=== PATIENT | female | born 1970 | race Caucasian/White ===

== ENCOUNTER 2018-05-11 16:21 | Outpatient (REF) | payer BC, SELFPAY ==
--- NOTE | 2018-05-11 16:00 | PAPFT_PTH ---
PATIENT: Tammy Ruth LOC: [facility] U#:[id number] AGE/SX: 47/F ROOM: RE05/11/[address]: Es West MD : 1970 BED: DIS: 05/11/2018 SPEC #: [id number] RECD: 05/11/18 18:04 STATUS: MATT LOCKWOOD #: [id number] AMI: 05/11/18 16:[address]: Es West DEPT: [facility] Cytology RECD BY: Anna Calderon ENTERED: 05/11/18 18:04 SP TYPE: PAPFT OTHR DR: Rocio Lange Tissues: 1 - CX/ENDOCX FOR PAP SMEARS Procedures: PAP THIN PREP/UVM Screening HPV DNA PROBE Comments: [id number]
== END 2018-05-11 16:41 ==
LOC: LBN 16:21
PROVIDERS: PCP Family Medicine; Visit Provider Obstetrics & Gynecology
DX: Z12.4 Encounter for screening for malignant neoplasm of cervix (principal); Z11.51 Encounter for screening for human papillomavirus (HPV)
CPT/HCPCS: 88142; 87624

== ENCOUNTER 2018-09-12 01:45 | Outpatient (CLI) | payer BC, SELFPAY ==
[2018-09-12 08:44] LABS: Anion Gap 9.7 mmol/L (3-11); BUN 22 mg/dL (7-18); CO2 27.3 mmol/L (21.0-32.0); CREATININE 0.91 mg/dL (0.55-1.02); Calcium 9.5 mg/dL (8.5-10.1); Chloride 104 mmol/L (98-107); Cholesterol 205 mg/dL (50-200); Glucose 102 mg/dL (70-100); HDL Cholesterol 75 mg/dL (40-60); LDL CHOLESTEROL 118 mg/dL (<100); Sodium 141 mmol/L (136-145); Triglyceride 90 mg/dL (30-150)
== END 2018-09-12 02:05 ==
PROVIDERS: PCP Family Medicine; Visit Provider Family Medicine
DX: Z00.00 Encounter for general adult medical examination without abnormal findings (principal); Z13.228 Encounter for screening for other metabolic disorders; Z13.220 Encounter for screening for lipoid disorders; Z79.1 Long term (current) use of non-steroidal anti-inflammatories (NSAID)
CPT/HCPCS: 36415; 80048; 80061; 83721

== ENCOUNTER 2018-11-15 00:27 | Outpatient (CLI) | payer BC, SELFPAY ==
--- NOTE | 2018-11-15 08:29 | DI.MAMMO_ITS ---
SYMPTOM/DIAGNOSIS: SCREENING, Z12.39 MAMMOGRAMS: Mammograms were interpreted according to the usual protocol including computer analysis with CAD system, tomosynthesis and C view imaging. The breast tissue is of moderate radiodensity. There is no evidence of a mass. There are no suspicious calcifications. There has been no significant interval change when compared with the prior images. SUMMARY: No evidence of malignancy, Category I. Breast density Category B. SA ASSESSMENT OF FINDINGS: Negative. Category 1. Patient will receive a letter notifying them of these results. BI-RADS category B. There are scattered areas of fibroglandular density.
== END 2018-11-15 00:47 ==
PROVIDERS: PCP Family Medicine; Visit Provider Family Medicine
DX: Z12.31 Encounter for screening mammogram for malignant neoplasm of breast (principal)
CPT/HCPCS: 77063; 77067

== ENCOUNTER 2018-11-20 01:11 | Outpatient (CLI) | payer BC, SELFPAY ==
--- NOTE | 2018-11-20 14:11 | DI.US_ITS ---
SYMPTOMS/DIAGNOSIS: ABNORMAL UTERINE BLEEDING AND LEFT-SIDED PAIN, N93.9 PELVIC ULTRASOUND: Pelvic ultrasound was performed transabdominally and transvaginally. Please see the accompanying data sheet for measurements of the pelvic structures. The uterus is normal in appearance. Endometrial stripe measures about 15 mm in thickness and appears fairly homogeneous. The patient is reportedly premenstrual. There is a right ovarian cyst measuring 25 mm in diameter, which appears to be a simple cyst. Otherwise, the ovaries are normal in appearance. No free fluid identified in the cul-de-sac. Limited scanning of the kidneys is unremarkable. CONCLUSION: A 25 mm presumably functional simple right ovarian cyst.
== END 2018-11-20 01:31 ==
PROVIDERS: PCP Family Medicine; Visit Provider Obstetrics & Gynecology
DX: N93.9 Abnormal uterine and vaginal bleeding, unspecified (principal); R10.32 Left lower quadrant pain; N83.291 Other ovarian cyst, right side
CPT/HCPCS: 76830; 76856

== ENCOUNTER 2018-11-22 11:17 | Outpatient (REF) | payer BC, SELFPAY ==
--- NOTE | 2018-11-22 10:30 | PAPFT_PTH ---
PATIENT: Tammy Ruth LOC: [facility] U#:[id number] AGE/SX: 48/F ROOM: RE11/22/[address]: Ethan Sebastian : 1970 BED: DIS: 11/22/2018 SPEC #: [id number] RECD: 11/22/18 13:06 STATUS: MATT RERomi #: [id number] AMI: 11/22/18 10:[address]: Ethan Sebastian DEPT: [facility] Cytology RECD BY: Anna Calderon ENTERED: 11/22/18 13:06 SP TYPE: PAPFT OTHR DR: Rocio Lange Tissues: 1 - CX/ENDOCX FOR PAP SMEARS Procedures: PAP THIN PREP/UVM Screening Comments: [id number] (UNSATISFACTORY FOR EVALUATION)
--- NOTE | 2018-11-22 10:30 | ENDOMET_PTH ---
PATIENT: Tammy Ruth LOC: [facility] U#:[id number] AGE/SX: 48/F ROOM: RE11/22/[address]: Ethan Sebastian : 1970 BED: DIS: 11/22/2018 SPEC #: [id number] RECD: 11/22/18 12:51 STATUS: MATT REQ #: [id number] AMI: 11/22/18 10:[address]: Ethan Sebastian DEPT: Surgical Specimen RECD BY: Anna Calderon ENTERED: 11/22/18 12:51 SP TYPE: Endomet OTHR DR: Rocio Lange Tissues: 1 - ENDOMETRIUM BX/SAMY Procedures: GROSS AND MICRO LEVEL 4 Comments: [id number]
== END 2018-11-22 11:37 ==
LOC: LBN 11:17
PROVIDERS: PCP Family Medicine; Visit Provider Internal Medicine Gastroenterology
DX: N85.8 Other specified noninflammatory disorders of uterus (principal); N93.8 Other specified abnormal uterine and vaginal bleeding; Z12.4 Encounter for screening for malignant neoplasm of cervix; Z11.51 Encounter for screening for human papillomavirus (HPV)
CPT/HCPCS: 88142; 88305; 87624

== ENCOUNTER 2019-01-15 12:37 | Outpatient (CLI) | payer BC, SELFPAY ==
[2019-01-15 13:47] LABS: HCT 33.1 % (36.0-46.0); HGB 10.4 g/dL (12.0-15.5); Mean Corp. HGB Concentration 31.4 g/dL (32.0-36.0); Mean Corpuscular Hemoglobin 27.3 pg (27.0-33.0); Mean Corpuscular Volume 86.9 fL (80-95); Mean Platelet Volume 9.4 fL (8.0-11.0); Platelet Count 533 x1000/uL (130-400); RBC 3.81 m/cumm (4.00-5.20); RBC Distribution Width 14.8 % (11.7-14.6); White Blood Cell Count 5.29 k/cumm (4.4-10.8)
== END 2019-01-15 12:57 ==
PROVIDERS: PCP Family Medicine; Visit Provider Obstetrics & Gynecology
DX: N92.0 Excessive and frequent menstruation with regular cycle (principal); N93.9 Abnormal uterine and vaginal bleeding, unspecified
CPT/HCPCS: 36415; 85027; 86900; 86901

== ENCOUNTER 2019-01-16 06:20 | Day surgery (SDC) | payer BC, SELFPAY ==
--- NOTE | 2019-01-15 10:14 | W.PM.HP.N ---
Date of service: 01/15/19 Time of Service: 10:14 Assessment and Plan (1) Perimenopausal menorrhagia: Current visit: No Status: Acute menorraghia unresponsive to medical therapy with symptomatic anemia plan Novasure endometrial ablation R/B/A reviewed all questions asked and answered consents signed History of Present Illness Chief Complaint: menorraghia unresponsive to medical therapy Narrative: 48 yo female with continued menorraghia heavy passing clots despite multiple attempts at medical therapy she present to office 01/14/19 with decreasing Hg, pale signs anemia Plan Novasure endometrial ablation Review of Systems Review of Systems All systems reviewed & are unremarkable except as noted in HPI and below PFSH Medical History Abnormal uterine bleeding (AUB) (Chronic) Hx of osteoarthritis (Acute) Surgical History section Biopsy of breast Hx of arthroscopy of left knee (Acute) Social History Smoking/Tobacco Use Status: Never Alcohol Intake: current Alcohol Intake frequency: holidays/special occasions only Drug use: Never Substance use type: does not use Household members: spouse, children and other Details: H - Adnan. 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 Do you feel safe at home: Yes Do you feel safe in your relationship?: Yes Female Reproductive History Menstrual control method: condoms History History 2 Para Hx # Term Pregnancies 2 Multiple births Hx # Pregnancies Ectopic pregnancies AB induced Hx Number of Living Children AB spontaneous Meds Home Medications Medication Instructions Recorded Confirmed Type acetaminophen 325 mg PO PRN #2 07/25/16 01/15/19 History ascorbic acid (vitamin C) [Vitamin 500 mg PO DAILY 07/25/16 01/15/19 History C] cholecalciferol (vitamin D3) 2,000 unit PO DAILY 07/25/16 01/15/19 History [Vitamin D3] ferrous gluconate 240 mg PO 07/25/16 01/14/19 History lorazepam 0.5 mg PO DAILY 07/25/16 01/15/19 History montelukast [Singulair] 10 mg PO DAILY tab-cap 07/25/16 01/15/19 History vitamin O18-jpikg acid 1 ea PO 07/25/16 01/14/19 History vitamin E mixed 400 unit PO DAILY 07/25/16 01/15/19 History meloxicam 7.5 mg PO DAILY tab-cap 03/27/18 01/15/19 History ropinirole 1 mg PO HS 03/27/18 01/15/19 History dextroamphetamine-amphetamine ER 10 mg PO QAM 11/13/18 01/14/19 History 10 mg 24hr capsule,extend release venlafaxine ER 150 mg 150 mg PO QHS 11/13/18 01/15/19 History capsule,extended release 24 hr norgestrel-ethinyl estradiol 0.3 1 tab PO DAILY #56 tab 01/08/19 01/15/19 Rx mg-30 mcg tablet Allergies Allergy/AdvReac Type Severity Reaction Status Date / Time trazodone AdvReac Mild very dry Verified 01/15/19 09:15 mouth Exam Const General: cooperative Other: pale and fatigued appearing Resp Effort & Inspection: normal respiratory effort Auscultation: clear to auscultation bilaterally Cardio Palpation: normal PMI Rate: regular rate Rhythm: regular rhythm Heart Sounds: S1 normal and S2 normal GI Inspection: normal to inspection Palpation: soft and no hepatosplenomegaly External Female Exam: external appearance normal Speculum Exam - Vagina: vaginal bleeding Bimanual Exam- Vagina & Uterus: normal bimanual exam OB/External & Speculum: vaginal bleeding
[2019-01-16 06:22] VITALS: BP 136/84; PULSE 93; RESP 17; TEMP 36.9; O2SAT 99
[2019-01-16] MEDS: Lactated Ringers 1,000 ML 125 ML IV (06:54)
[2019-01-16] MEDS: Bupivacaine 0.5% Pres-Free 30 ML VIAL (07:55)
[2019-01-16] MEDS: Silver Nitrate Stick 1 EACH (08:05)
[2019-01-16] MEDS: oxyCODONE 5 mg/Acetaminophen 325 mg TAB PO (08:51)
[2019-01-16 08:58] VITALS: BP 146/82; PULSE 69; RESP 18; TEMP 36.5; O2SAT 100
--- NOTE | 2019-01-17 07:21 | ROE_ITS ---
DATE OF SURGERY January 16, 2019 PREOPERATIVE DIAGNOSES Menorrhagia unresponsive to medical therapy. POSTOPERATIVE DIAGNOSES Menorrhagia unresponsive to medical therapy. PROCEDURE NovaSure ablation. SURGEON Es West M.D. ANESTHESIA General. COMPLICATIONS None. ESTIMATED BLOOD LOSS 25 cc FLUID Per Anesthesia records. FINDINGS Sounding length of uterus 10 centimeters. Cervical length 4.5 centimeters. Cavity length 5.5 centimet ers. Cavity width 4.4 centimeters. POWER Power 133. TIME OF ABLATION 109 Seconds. PROCEDURE DESCRIPTION The patient was taken to the Operating Room, where she was properly identified. She was then placed on the operating table in the dorsal supine position. General Anesthesia was induced without difficul ty. She was then placed in the dorsal lithotomy position, prepped and draped in a normal sterile fas hion. A formal time-out procedure was then performed, confirming the patient and procedure. A bivalved speculum was placed. The cervix was visualized and grasped on the anterior lip with a sin gle-tooth tenaculum. The uterus total cavity length was sounded using the uterine sound and measurem ent was 10 centimeters. Cervical length was 4.5, thus giving a cavity length of 5.5 centimeters. The cervix was dilated with the Levy dilators without difficulty. The NovaSure endometrial ablation appa ratus was advanced into the uterine cavity without difficulty and deployed. The uterine cavity width was measured at 4.4 centimeters. A cavity assessment was performed and it was adequate, then [address] endometrial ablation was performed without difficulty or complication. Once the procedure was ende d, all the equipment was removed from the uterus and cervix. There was a small amount of bleeding fro m the Single-tooth tenaculum site, which was made hemostatic with silver nitrate. The patient was awakened and taken to the Recovery Room in stable condition. Sponge, lap, needle and instrument counts were correct x2. CC: [facility]
== END 2019-01-16 09:37 | disposition home or self-care (01) ==
LOC: SUR 09:44
PROVIDERS: PCP Family Medicine; Visit Provider Obstetrics & Gynecology
PROC: (CPT 58353; principal; 2019-01-16 07:30)
DX: N92.4 Excessive bleeding in the premenopausal period (principal)
CPT/HCPCS: 58353; 81025; NC

== ENCOUNTER 2019-10-02 11:58 | Outpatient (REF) | payer BC, SELFPAY ==
[2019-10-02 19:29] LABS: Bilirubin Negative (Negative); Blood Small (Negative); Clarity Clear (Clear); Glucose Negative (Negative); Ketones Negative (Negative); Leukocyte Esterase Negative (Negative); Nitrite Negative (Negative); Urobilinogen 0.2 EU/dL (Up TO 0.2)
[2019-10-02 19:40] LABS: Bacteria Negative HPF (Negative); C & S Indicated? No; Crystals Negative HPF (Negative); Epithelial Cells Moderate HPF (Negative); Mucus Negative (Negative); WBC 0-2 HPF (0-5)
== END 2019-10-02 12:18 ==
LOC: NCHCN 11:58
PROVIDERS: PCP Family Medicine; Visit Provider Family Medicine
DX: R50.9 Fever, unspecified (principal); R10.32 Left lower quadrant pain
CPT/HCPCS: 81003; 81015

== ENCOUNTER 2019-10-02 12:05 | Outpatient (CLI) | payer BC, SELFPAY ==
[2019-10-02 12:34] LABS: Abs Immature Grans 0.03 k/cumm (0.0-0.09); Absolute Basophil Count 0.01 k/cumm (0.0-0.2); Absolute Eosinophil Count 0.05 k/cumm (0.0-0.7); Absolute Lymphocyte Count 1.14 k/cumm (1.2-3.4); Absolute Monocyte Count 0.52 k/cumm (0.11-0.7); Absolute Neutrophil Count 9.61 k/cumm (1.2-6.7); Basophils % 0.1; Eosinophils % 0.4; HGB 12.8 g/dL (12.0-15.5); Immature Grans % 0.3 %; Mean Corp. HGB Concentration 33.7 g/dL (32.0-36.0); Mean Corpuscular Hemoglobin 30.1 pg (27.0-33.0); Mean Corpuscular Volume 89.4 fL (80-95); Mean Platelet Volume 9.3 fL (8.0-11.0); Monocytes % 4.6; Neutrophils % 84.6; Platelet Count 455 x1000/uL (130-400); RBC 4.25 m/cumm (4.00-5.20); RBC Distribution Width 14.8 % (11.7-14.6); White Blood Cell Count 11.36 k/cumm (4.4-10.8)
[2019-10-02 13:30] LABS: ALT 15 U/L (14-59); AST 15 U/L (15-37); Albumin 3.8 g/dL (3.4-5.0); Alkaline Phosphatase 68 U/L (46-116); Anion Gap 9.7 mmol/L (3-11); BUN 16 mg/dL (7-18); Bilirubin, Total 0.7 mg/dL (0.2-1.0); C-Reactive Protein 3.67 mg/dL (0.0-0.3); CO2 24.3 mmol/L (21.0-32.0); CREATININE 0.83 mg/dL (0.55-1.02); Calcium 8.6 mg/dL (8.5-10.1); Chloride 104 mmol/L (98-107); Glucose 94 mg/dL (74-106); Sodium 138 mmol/L (136-145); Total Protein 7.3 g/dL (6.4-8.2)
[2019-10-02 13:42] LABS: HCG Qual (Serum) Negative
[2019-10-02] MEDS: Omnipaque 350 MG/ML 100 ML BTL IJ (14:48)
--- NOTE | 2019-10-02 14:48 | DI.CT_ITS ---
EXAM: CT ABDOMEN AND PELVIS W CLINICAL HISTORY: LLQ, PAIN, R10.32, FEVER, R50.9, ? DIVERTICULITIS TECHNIQUE: Imaging Protocol: Axial computed tomography images with coronal and sagittal reformatted images were created and reviewed CONTRAST MATERIAL: Intravenous: Omnipaque 350 Contrast volume:100 mL Oral: Yes COMPARISON: No exams were available for comparison FINDINGS: ABDOMEN: Lung Bases: Normal where visualized. Liver: Normal density. No measurable mass. Portal, Superior Mesenteric, and Splenic Veins: Unremarkable. Gallbladder and Biliary Tract: No radiodense calculus or dilation. Pancreas: Normal density, no abnormal calcifications or inflammatory process. Spleen: Normal. Adrenals: No masses seen. Kidneys: Normal size, contour and axis. No radiodense stones or obstructive uropathy. No masses seen. Abdominal Aorta: Abdominal portion non-dilated. Bowel: There is mild bowel wall thickening seen in the proximal sigmoid colon. This lies adjacent to an enlarged and heterogeneous left ovary. There is no evidence of obstruction. Appendix is unremar kable. Peritoneal Cavity: No ascites, collection or mesenteric inflammatory response. Lymph Nodes: Within normal limits. Bones: Unremarkable. Soft Tissues: Unremarkable. PELVIS: Bladder: Symmetric distention, no gross wall thickening. Reproductive Organs: There is fluid seen within the endometrial canal. There is heterogeneity of the cervix. An obstructing mass cannot be excluded. The left ovary appears mildly enlarged and heterog eneous. Inflammatory stranding is seen around the ovary. Lymph Nodes: Within normal limits. Bones: Mild degenerative changes. IMPRESSION: 1. Fluid seen within the endometrial canal. Heterogeneity of the region of the cervix. An obstructi ng mass should be considered. Pelvic ultrasound is recommended for further evaluation. MRI may be c onsidered. 2. Mildly enlarged and heterogeneous left ovary. Pelvic ultrasound should be obtained to assess for ovarian mass or torsion. 3. Mild thickening of the wall of the adjacent sigmoid colon. Inflammatory or infectious colitis can not be excluded. 4. Findings were discussed with the patient's primary care physician on the date of the examination. DATA REPOSITORY: All CT scans at this facility are submitted to the National Radiology Data Registry (NRDR) Dose Index Registry (DIR) with the [employer] (ACR). RADIATION OPTIMIZATION: All CT scans at this facility use at least one of these dose optimization te chniques: automated exposure control; mA and/or kV adjustment per patient size (includes targeted exa ms where dose is matched to clinical indication); or iterative reconstruction.
[2019-10-02] MEDS: Normal Saline - Diluent 50 ML VIAL IV (14:49)
== END 2019-10-02 12:25 ==
PROVIDERS: PCP Family Medicine; Visit Provider Family Medicine
DX: R10.32 Left lower quadrant pain (principal); R50.9 Fever, unspecified; N83.8 Other noninflammatory disorders of ovary, fallopian tube and broad ligament; K63.89 Other specified diseases of intestine; R93.89 Abnormal findings on diagnostic imaging of other specified body structures
CPT/HCPCS: 36415; 80053; 74177; 84703; 85025; 86140; J3490

== ENCOUNTER 2019-10-02 15:04 | Observation (INO) | payer BC, SELFPAY ==
[2019-10-02] VITALS (28 sets, daily range): BP systolic 100–130; BP diastolic 63–82; PULSE 86–112; RESP 13–26; TEMP 36.2–37; O2SAT 90–100
[2019-10-02] MEDS: EPINEPHrine 0.3 MG KIT 0.5 MG IM (15:11)
[2019-10-02] MEDS: methylPREDNISolone SUCC 125 MG VIAL IVP (15:21)
[2019-10-02] MEDS: diphenhydrAMINE 50 MG/ML VIAL IVP (15:21)
[2019-10-02] MEDS: Normal Saline 1,000 ML 1000 ML IV (15:23)
--- NOTE | 2019-10-02 16:03 | DI.US_ITS ---
EXAM: US PELVIS TRANSVAGINAL CLINICAL HISTORY: eval for torsion and uterine abnormality TECHNIQUE: Ultrasound performed using standard protocol. COMPARISON: US PELVIS TRANSVAGINAL from 11/20/2018 FINDINGS: Pelvic ultrasound was performed transabdominally and transvaginally. Patient reportedly has a histor y of prior endometrial ablation. On today's examination, uterus appears mildly enlarged with somewhat heterogeneous myometrium. Endom etrium is thickened and slightly heterogeneous, measuring 18 millimeters in thickness. Right ovary p oorly visualized, only seen transabdominally, but grossly unremarkable. Left ovary unremarkable in a ppearance. Small quantity of free pelvic fluid noted. IMPRESSION: Abnormally thickened endometrial stripe in reportedly postmenopausal patient. Endometrial biopsy vikash uld be considered to rule out neoplasm.
--- NOTE | 2019-10-02 16:44 | DI.VRAD_ITS ---
PROCEDURE INFORMATION: Preliminary report Exam: US Pelvis Complete, Transabdominal and US Pelvis, Transvaginal Exam date and time: 10/02/2019 3:22 PM Age: 49 years old Clinical indication: Pelvic pain; Prior surgery; Surgery date: 6+ months; Surgery type: Endometrial ablation 12/2018 TECHNIQUE: Imaging protocol: Real-time transabdominal and transvaginal pelvic ultrasound (complete) with image documentation. Transvaginal imaging was used for better evaluation of the endometrium and adnexa. COMPARISON: US PELVIS TRANSVAGINAL 11/20/2018 5:21 PM FINDINGS: Uterus/cervix: Uterus measures 9.4 x 4.6 x 6.0 cm. Thickened endometrium currently measuring 1.8 cm in diameter and previously measuring 1.5 cm. Right adnexa: Right ovary measures 3.1 x 0.9 x 1.4 cm. Left adnexa: Left ovary measures 2.2 x 1.7 x 1.6 cm. Free fluid: Trace free fluid. Bladder: Normal bladder morphology. IMPRESSION: Thickened endometrium currently measuring 1.8 cm in diameter and previously measuring 1.5 cm. Dictated and Authenticated by: Christo Cox MD. Ordering:NOE Fields MD
[2019-10-02 17:10] LABS: Abs Immature Grans 0.03 k/cumm (0.0-0.09); Absolute Basophil Count 0.01 k/cumm (0.0-0.2); Basophils % 0.1; HCT 36.2 % (36.0-46.0); HGB 12.3 g/dL (12.0-15.5); Immature Grans % 0.2 %; Lymphocytes % 8.5; Mean Corpuscular Hemoglobin 30.4 pg (27.0-33.0); Mean Corpuscular Volume 89.6 fL (80-95); Mean Platelet Volume 9.3 fL (8.0-11.0); Monocytes % 2.3; Neutrophils % 88.9; Platelet Count 453 x1000/uL (130-400); RBC 4.04 m/cumm (4.00-5.20); RBC Distribution Width 14.6 % (11.7-14.6); White Blood Cell Count 14.15 k/cumm (4.4-10.8)
[2019-10-02 17:12] LABS: Absolute Monocyte Count 0.33 k/cumm (0.11-0.7); Absolute Neutrophil Count 12.58 k/cumm (1.2-6.7)
--- NOTE | 2019-10-02 17:15 | HPE_ITS ---
Date of service: 10/02/19 Time of Service: 17:15 Assessment and Plan Assessment and plan (1) Acute abdominal pain in left lower quadrant: Status: Acute Assessment and plan: It is likely that there are 2 processes at play here. From her imaging studies does appear that she has a developing tubo-ovarian abscess and we will treat her with Mefoxin and doxycycline overnight and perform pain management. The imaging of her uterus is suggestive of a hematometra and this could be the result of obstruction related to her NovaSure endometrial ablation. For now we will simply manage pain and symptoms and decide further plan of management tomorrow and determine if surgical intervention is required. (2) Tubo-ovarian abscess: Status: Acute (3) Hematometra: Status: Acute (4) Anaphylactic reaction to contrast media: Status: Acute History of Present Illness History of Present Illness Chief Complaint: Acute abdominal pain possible tubo- ovarian abscess and hematometra Narrative: Is a 49-year-old who presents emergency department with acute onset of severe abdominal pain that began last night. She reports the constant onset of fevers and chills as well. She did not actually take her temperature. The patient reports her pain is localized in the left lower quadrant and is nonradiating. She describes her pain as severe. Last normal bowel movement was last night. She is status post NovaSure endometrial ablation last year and has not had a menses since that procedure last December. She denies any abnormal vaginal discharge. No urinary symptoms. She did have a CT of the abdomen and pelvis and a pelvic ultrasound. Unfortunately she did have an anaphylactic reaction due to IV contrast while on CT and was treated in the emergency department. Findings on CT demonstrate inflammatory changes in left adnexa. On both studies the endometrium was noted to be markedly thickened and did appear to be fluid-filled on CT resembling a possible hematometra. Review of Systems All systems reviewed & are unremarkable except as noted in HPI and below PFSH Social History Smoking/Tobacco Use Status: Never Alcohol Intake: current Alcohol Intake frequency: holidays/special occasions only Drug use: Never Substance use type: does not use Household members: spouse, children and other Details: H - Adnan. 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 Do you feel safe at home: Yes Do you feel safe in your relationship?: Yes Female Reproductive History Menstrual control method: condoms History History 2 Para Hx # Term Pregnancies 2 Multiple births Hx # Pregnancies Ectopic pregnancies AB induced Hx Number of Living Children AB spontaneous Meds Home Medications and Allergies Home Medications Medication Instructions Recorded Confirmed Type ascorbic acid (vitamin C) [Vitamin 500 mg PO DAILY 07/25/16 10/02/19 History C] cholecalciferol (vitamin D3) 2,000 unit PO DAILY 07/25/16 10/02/19 History [Vitamin D3] ferrous gluconate 240 mg PO BID 07/25/16 10/02/19 History lorazepam 0.5 mg PO HS 07/25/16 10/02/19 History montelukast [Singulair] 10 mg PO DAILY tab-cap 07/25/16 10/02/19 History vitamin E mixed 400 unit PO BID 07/25/16 10/02/19 History meloxicam 15 mg PO DAILY tab-cap 03/27/18 10/02/19 History ropinirole 1 mg PO HS 03/27/18 10/02/19 History dextroamphetamine-amphetamine ER 15 mg PO QAM 11/13/18 01/29/19 History 10 mg 24hr capsule,extend release venlafaxine 150 mg 150 mg PO QHS 11/13/18 10/02/19 History capsule,extended release 24 hr albuterol sulfate [ProAir HFA] 2 puff INHALATION QID PRN 10/02/19 10/02/19 History budesonide-formoterol [Symbicort] 2 puff INHALATION BID 10/02/19 10/02/19 History mirtazapine 15 mg PO QHS 10/02/19 10/02/19 History venlafaxine [Effexor XR] 75 mg PO DAILY 10/02/19 10/02/19 History Allergies Allergy/AdvReac Type Severity Reaction Status Date / Time iohexol [From Omnipaque] Allergy Severe Anaphylaxsi Verified 10/02/19 15:17 s trazodone AdvReac Mild very dry Verified 01/29/19 15:50 mouth Exam GI Other: Tenderness to palpation in the left lower quadrant. No rebound, guarding or rigidity. No palpable masses. Results Labs Result diagrams: 10/02/19 17:04 10/02/19 17:04 Labs: Laboratory Results - last 24 hr 10/02/19 17:04 WBC 14.15 H RBC 4.04 Hgb 12.3 Hct 36.2 MCV 89.6 MCH 30.4 MCHC 34.0 RDW 14.6 Plt Count 453 H MPV 9.3 Immature Gran % 0.2 Neutrophils % 88.9 Lymphocytes % 8.5 Monocytes % 2.3 Eosinophils % 0.0 Basophils % 0.1 Absolute Neutrophils 12.58 H Absolute Lymphocytes 1.20 Absolute Monocytes 0.33 Absolute Eosinophils 0.00 Absolute Basophils 0.01 Last Vital Signs Temp 98.2 F 10/02/19 15:12 Pulse 99 H 10/02/19 16:45 Resp 15 10/02/19 16:50 BP 127/70 10/02/19 16:45 Pulse Ox 100 10/02/19 15:31
[2019-10-02 17:25] LABS: ALT 16 U/L (14-59); AST 12 U/L (15-37); Albumin 3.5 g/dL (3.4-5.0); Alkaline Phosphatase 65 U/L (46-116); Anion Gap 12.6 mmol/L (3-11); BUN 11 mg/dL (7-18); Bilirubin, Total 0.8 mg/dL (0.2-1.0); CO2 22.4 mmol/L (21.0-32.0); CREATININE 0.75 mg/dL (0.55-1.02); Calcium 7.9 mg/dL (8.5-10.1); Chloride 105 mmol/L (98-107); Glucose 155 mg/dL (74-106); Potassium 3.1 mmol/L (3.5-5.1); Sodium 140 mmol/L (136-145); Total Protein 7.3 g/dL (6.4-8.2)
--- NOTE | 2019-10-02 17:39 | NUR.NOTE ---
patient medicated per MD order Nursing Note:
[2019-10-02] MEDS: Ketorolac 30 MG/ML VIAL IVP ×2 (18:45→22:17)
[2019-10-02] MEDS: Normal Saline Flush 10 ML SYR IVP (18:45)
[2019-10-02] MEDS: DOXYCYCLINE 100 MG in Normal Saline 100 ML IVPB (18:46)
[2019-10-02] MEDS: Lactated Ringers 1,000 ML 75 ML IV (18:46)
--- NOTE | 2019-10-02 22:47 | ED.GENADUL_ITS ---
Discharge Plan Disposition [facility] Condition: Stable Discharge Details Chief Complaint: Allergic Clinical Impression: Acute abdominal pain in left lower quadrant, Acute anaphylaxis Admit Date/Time: 10/02/19 17:11 Admit Provider: Salvador Sebastian Attending Provider: Salvador Sebastian Primary Care Provider: Rocio Lange ED Provider: Donnie Irizarry Discharge Data Discharge Date/Time-TO BE ENTERED AT DEPARTURE: 10/02/19 18:12 Medical Decision Making This is a 49-year-old female who was brought emergently from diagnostic imaging for evaluation of anaphylactic reaction. Patient was receiving an IV contrast CT scan for evaluation of potential diverticulitis. While receiving the contrast the patient began having difficulty breathing, became short of breath, and a notable rash developed. He was brought to the ER immediately. Exam demonstrated mild tachycardia, no hypoxia. Subjective difficulty breathing with mild increase in secretions in conjunction with rash. With the 3 system involvement present, patient was demonstrating mild to moderate anaphylaxis. 0.5 mg of epinephrine were given IM, 50 mg of Benadryl and 125 mg of Solu-Medrol. Patient tolerated all this well and her symptoms gradually improved. However exam did demonstrate left lower quadrant pain. CT scan results demonstrate notable atypical finding in the uterus and left ovary concerning for cyst or mass in conjunction with fluid in the uterus. She did have a recent hysterectomy so this is of concern. Ultrasound was subsequently ordered, which showed small amount of fluid in the uterus however more concerning like there is an atypical flow/met anatomy of the left ovary. Radiology/ultrasonography was concerned for potential torsion versus developing tubo-ovarian abscess. I did contact the obstetrics organ pipe maker metal Dr. Sebastian vehicle controls engineer, he was both extremely accommodating and helpful and admitted the patient to his service for antibiotics, and continued close monitoring for potential surgical intervention. I have extensively reviewed the treatment plan with the patient. I have addressed all patient concerns at this time. I have also discussed the plan with the admitting physician and they agree with the current assessment and plan and have agreed to assume responsibility for the patient. All parties demonstrate verbal understanding and agreement with our assessment and plan at this time. FINDINGS: ABDOMEN: Lung Bases: Normal where visualized. Liver: Normal density. No measurable mass. Portal, Superior Mesenteric, and Splenic Veins: Unremarkable. Gallbladder and Biliary Tract: No radiodense calculus or dilation. Pancreas: Normal density, no abnormal calcifications or inflammatory process. Spleen: Normal. Adrenals: No masses seen. Kidneys: Normal size, contour and axis. No radiodense stones or obstructive uropathy. No masses seen. Abdominal Aorta: Abdominal portion non-dilated. Bowel: There is mild bowel wall thickening seen in the proximal sigmoid colon. This lies adjacent to an enlarged and heterogeneous left ovary. There is no evidence of obstruction. Appendix is unremarkable. Peritoneal Cavity: No ascites, collection or mesenteric inflammatory response. Lymph Nodes: Within normal limits. Bones: Unremarkable. Soft Tissues: Unremarkable. PELVIS: Bladder: Symmetric distention, no gross wall thickening. Reproductive Organs: There is fluid seen within the endometrial canal. There is heterogeneity of the cervix. An obstructing mass cannot be excluded. The left ovary appears mildly enlarged and heterogeneous. Inflammatory stranding is seen around the ovary. Lymph Nodes: Within normal limits. Bones: Mild degenerative changes. IMPRESSION: 1. Fluid seen within the endometrial canal. Heterogeneity of the region of the cervix. An obstructing mass should be considered. Pelvic ultrasound is recommended for further evaluation. MRI may be considered. 2. Mildly enlarged and heterogeneous left ovary. Pelvic ultrasound should be obtained to assess for ovarian mass or torsion. 3. Mild thickening of the wall of the adjacent sigmoid colon. Inflammatory or infectious colitis cannot be excluded. 4. Findings were discussed with the patient's primary care physician on the date of the examination. FINDINGS: Uterus/cervix: Uterus measures 9.4 x 4.6 x 6.0 cm. Thickened endometrium currently measuring 1.8 cm in diameter and previously measuring 1.5 cm. Right adnexa: Right ovary measures 3.1 x 0.9 x 1.4 cm. Left adnexa: Left ovary measures 2.2 x 1.7 x 1.6 cm. Free fluid: Trace free fluid. Bladder: Normal bladder morphology. IMPRESSION: Thickened endometrium currently measuring 1.8 cm in diameter and previously measuring 1.5 cm. Dictated and Authenticated by: Christo Cox MD. HPI General Date/Time Provider Initiated Documentation: 10/02/19 15:20 . HPI Narrative: This is a 49-year-old female who was brought to the emergency depar tment emergently for an anaphylactic reaction from IV contrast. Patient was receiving an outpatient CT scan for evaluation of diverticulitis, however while receiving the contrast media she began to develop significant shortness of breath, difficulty breathing, rash, and increase in secretions. She was immediately brought over to the emergency department for further assessment. Patient denies any chest pain vomiting or diarrhea. Regards to her abdominal pain she states that it is been present for the last few days, present in the left lower quadrant, she denies vomiting or diarrhea or vaginal discharge. Of note she did recently have an endometrial ablation. Patient has no other complaints at this time for the mild abdominal pain however she states that this is fairly minimal is more concerned about her rash and breathing. Patient denies any previous allergies. Related Data Home Medications Medication Instructions Recorded Confirmed ascorbic acid (vitamin C) [Vitamin 500 mg PO DAILY 07/25/16 10/02/19 C] cholecalciferol (vitamin D3) 2,000 unit PO DAILY 07/25/16 10/02/19 [Vitamin D3] ferrous gluconate 240 mg PO BID 07/25/16 10/02/19 lorazepam 0.5 mg PO HS 07/25/16 10/02/19 montelukast [Singulair] 10 mg PO DAILY tab-cap 07/25/16 10/02/19 vitamin E mixed 400 unit PO BID 07/25/16 10/02/19 meloxicam 15 mg PO DAILY tab-cap 03/27/18 10/02/19 ropinirole 1 mg PO HS 03/27/18 10/02/19 dextroamphetamine-amphetamine ER 15 mg PO QAM 11/13/18 01/29/19 10 mg 24hr capsule,extend release venlafaxine 150 mg 150 mg PO QHS 11/13/18 10/02/19 capsule,extended release 24 hr albuterol sulfate [ProAir HFA] 2 puff INHALATION QID PRN 10/02/19 10/02/19 budesonide-formoterol [Symbicort] 2 puff INHALATION BID 10/02/19 10/02/19 mirtazapine 15 mg PO QHS 10/02/19 10/02/19 venlafaxine [Effexor XR] 75 mg PO DAILY 10/02/19 10/02/19 Allergies Allergy/AdvReac Type Severity Reaction Status Date / Time iohexol [From Omnipaque] Allergy Severe Anaphylaxsi Verified 10/02/19 15:17 s trazodone AdvReac Mild very dry Verified 01/29/19 15:50 mouth General Stated Complaint: Allergic FRANCK: 2 Review of Systems All systems reviewed & are unremarkable except as noted in HPI and below PFS Social History Smoking/Tobacco Use Status: Never Alcohol Intake: current Alcohol Intake frequency: holidays/special occasions only Drug use: Never Substance use type: does not use Household members: spouse, children and other Details: H - Adnan. 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 Do you feel safe at home: Yes Do you feel safe in your relationship?: Yes Female Reproductive History Menstrual control method: condoms History History 2 Para Hx # Term Pregnancies 2 Multiple births Hx # Pregnancies Ectopic pregnancies AB induced Hx Number of Living Children AB spontaneous Exam Narrative Exam Narrative: 1.Const: Well-nourished, Well-developed, appearing stated age 2.Eyes: PERRL, no conjunctival injection, and symmetrical lids. 3.ENT: Atraumatic external nose and ears. Moist MM. Neck: Symmetric, trachea midline, No thyromegaly. No evidence of significant angioedema, slight increase in secretions is present. No signs of airway compromise. 4.CVS: +S1/S2, No murmurs or gallops. Peripheral pulses 2+ and equal in all extremities. Brisk capillary refill in all extremities. 5.RESP: Unlabored respiratory effort. Clear to auscultation bilaterally. No wheezes rales or rhonchi, mild subjective difficulty breathing 6.GI: Soft, Nondistended, No hepatosplenomegaly. No guarding or rebound. Mild tenderness in the left lower quadrant of the abdomen. 7.MSK: Normocephalic/Atraumatic, Extremities w/o deformity or ttp No cyanosis or clubbing, Normal movement of all extremities 8.Skin: Warm, Dry. Notable hives, lacy rash, and urticaria are present over the neck face chest arms and thighs. 9.Neuro: entry level assistant manager II-XII grossly intact. Sensation grossly intact, no focal neurologic deficits. 10.Psych: (AAO) x3. Appropriate mood and affect Course Vital Signs Vital signs: Vital Signs Temperature 36.8 C 10/02/19 15:12 Pulse 89 10/02/19 15:12 Respiratory Rate 18 10/02/19 15:12 Blood Pressure 124/78 10/02/19 15:12 Pulse Oximetry 99 10/02/19 15:12 Temperature 36.4 C L 10/02/19 19:57 Temperature Source Tympanic 10/02/19 19:57 Pulse 106 H 10/02/19 20:20 Pulse Rhythm Regular 10/02/19 18:25 Pulse 109 H 10/02/19 17:50 Respiratory Rate 17 10/02/19 19:57 Respiratory Effort Non-Labored 10/02/19 18:25 Respiratory Depth Normal 10/02/19 18:25 Respiratory Pattern Normal 10/02/19 18:25 Blood Pressure 128/78 10/02/19 19:57 Blood Pressure Mean 84 10/02/19 17:45 Pulse Oximetry 95 10/02/19 19:57 Oxygen Delivery Method Room Air 10/02/19 19:57 Oxygen Flow Rate 0 10/02/19 19:57 Pain Level 0 10/02/19 19:57 Lab/Test Results Lab/Test Results: Laboratory Tests Range/Units 10/02/19 10/02/19 17:04 17:04 WBC (4.4-10.8) k/cumm 14.15 H RBC (4.00-5.20) m/cumm 4.04 Hgb (12.0-15.5) g/dL 12.3 Hct (36.0-46.0) % 36.2 MCV (80-95) fL 89.6 MCH (27.0-33.0) pg 30.4 MCHC (32.0-36.0) g/dL 34.0 RDW (11.7-14.6) % 14.6 Plt Count (130-400) x1000/uL 453 H MPV (8.0-11.0) fL 9.3 Immature Gran % % 0.2 Neutrophils % 88.9 Lymphocytes % 8.5 Monocytes % 2.3 Eosinophils % 0.0 Basophils % 0.1 Absolute Neutrophils (1.2-6.7) k/cumm 12.58 H Absolute Lymphocytes (1.2-3.4) k/cumm 1.20 Absolute Monocytes (0.11-0.7) k/cumm 0.33 Absolute Eosinophils (0.0-0.7) k/cumm 0.00 Absolute Basophils (0.0-0.2) k/cumm 0.01 Sodium (136-145) mmol/L 140 Potassium (3.5-5.1) mmol/L 3.1 L Chloride (98-107) mmol/L 105 Carbon Dioxide (21.0-32.0) mmol/L 22.4 Anion Gap (3-11) mmol/L 12.6 H BUN (7-18) mg/dL 11 Creatinine (0.55-1.02) mg/dL 0.75 Estimated GFR/1.73 m2 (mL/min/1.73m2) >= 60.00 Glucose (74-106) mg/dL 155 H Calcium (8.5-10.1) mg/dL 7.9 L Total Bilirubin (0.2-1.0) mg/dL 0.8 AST (15-37) U/L 12 L ALT (14-59) U/L 16 Alkaline Phosphatase (46-116) U/L 65 Total Protein (6.4-8.2) g/dL 7.3 Albumin (3.4-5.0) g/dL 3.5
[2019-10-03 04:40] VITALS: BP 117/72; PULSE 80; RESP 16; TEMP 36; O2SAT 97
[2019-10-03] MEDS: DOXYCYCLINE 100 MG in Normal Saline 100 ML IVPB (06:16)
[2019-10-03] MEDS: Normal Saline Flush 10 ML SYR IVP ×3 (06:16→12:02)
[2019-10-03] MEDS: Ketorolac 30 MG/ML VIAL IVP ×2 (06:23→12:02)
[2019-10-03 08:05] VITALS: BP 105/67; PULSE 72; RESP 18; TEMP 37; O2SAT 96
[2019-10-03 11:27] LABS: HCT 34.7 % (36.0-46.0); HGB 11.7 g/dL (12.0-15.5); Mean Corp. HGB Concentration 33.7 g/dL (32.0-36.0); Mean Corpuscular Hemoglobin 30.8 pg (27.0-33.0); Mean Corpuscular Volume 91.3 fL (80-95); Mean Platelet Volume 9.4 fL (8.0-11.0); Platelet Count 416 x1000/uL (130-400)
--- NOTE | 2019-10-03 11:41 | W.NUTCONSULT ---
Date of service: 10/03/19 Time of Service: 11:41 Nutritional Consult ASSESSMENT: 49 year old female admitted with abdominal pain, tubo-ovarian abscess. Following regular diet, BMI wnl for age. Not considered at nutritional risk. will follow. MONITORING AND EVALUATION: po intake, weight Time Spent in Nutritional Counseling and Treatment: 0 time spent face to face
[2019-10-03] MEDS: Lactated Ringers 1,000 ML 75 ML IV (11:54)
--- NOTE | 2019-10-03 13:18 | W.PROCNOTE ---
Date of service: 10/03/19 Time of Service: 13:18 Procedure Note Date of procedure: 10/03/19 Procedure: Dilation of cervix Surgeon/Proceduralist/Physician: Salvador Sebastian Procedure Diagnosis: 1. Cervical stenosis 2. Hematometra Procedure Description: A sterile speculum was placed in the vagina with good visualization of the cervix. The cervix was prepped with Betadine solution. A paracervical block with 10 cc of 1% plain lidocaine solution was instilled. The cervix was gently dilated with Levy dilators. Immediately on dilatation of the cervix a copious volume of old dark blood and clots was expelled. The cervix was serially dilated to ensure the ability to spontaneously expel the hematometra. The procedure was concluded having been tolerated well.
--- NOTE | 2019-10-03 13:21 | W.PM.PROGNOT ---
Date of Service Date of service: 10/03/19 Time of Service: 13:22 Assessment and Plan Assessment and plan (1) Tubo-ovarian abscess: Status: Acute (2) Hematometra: Status: Acute (3) Cervical stenosis (uterine cervix): Status: Acute Assessment and plan: The patient did undergo dilation of the cervix in the procedure room. Copious old blood and clots was evacuated from the uterus. The patient has been afebrile and pain is improved. We will continue antibiotics for the next 2 weeks. I will have her follow-up with me in the clinic next week and we will obtain a pelvic ultrasound as an outpatient prior to her appointment and reevaluate the endometrium. Will discharge home on Levaquin/Flagyl. Subjective Subjective Interval history since last seen: Doing well. Pain markedly improved. Now rated 3 out of 10. She has only required Toradol for pain management. She did undergo dilation of the cervix in the clinic this morning with evacuation of the hematometra. She has been afebrile overnight and white cell count has declined since starting antibiotics. Objective Objective Clinical Data: Abnormal lab results 10/02/19 10/02/19 10/03/19 Range/Units 17:04 17:04 11:15 WBC 14.15 H 11.20 H (4.4-10.8) k/cumm RBC 3.80 L (4.00-5.20) m/cumm Hgb 11.7 L (12.0-15.5) g/dL Hct 34.7 L (36.0-46.0) % RDW 15.0 H (11.7-14.6) % Plt Count 453 H 416 H (130-400) x1000/uL Absolute Neutrophils 12.58 H (1.2-6.7) k/cumm Potassium 3.1 L (3.5-5.1) mmol/L Anion Gap 12.6 H (3-11) mmol/L Glucose 155 H (74-106) mg/dL Calcium 7.9 L (8.5-10.1) mg/dL AST 12 L (15-37) U/L Vital Signs Temperature 98.6 F 10/03/19 08:05 Temperature Source Tympanic 10/03/19 08:05 Pulse 72 10/03/19 08:05 Pulse Rhythm Regular 10/03/19 07:51 Pulse 109 H 02/05/20 17:50 Respiratory Rate 18 10/03/19 08:05 Respiratory Effort Non-Labored 10/03/19 07:51 Respiratory Depth Normal 10/03/19 07:51 Respiratory Pattern Normal 10/03/19 07:51 Blood Pressure 105/67 10/03/19 08:05 Blood Pressure Mean 84 10/02/19 17:45 Pulse Oximetry 96 10/03/19 08:05 Oxygen Delivery Method Room Air 10/03/19 08:05 Oxygen Flow Rate 0 10/03/19 08:05 Pain Level 5 10/03/19 12:02 Intake & Output 10/02/19 10/03/19 10/03/19 23:59 11:59 23:59 Intake Total 1959 1200 / 1200 Balance 1959 1200 / 1200 Weight 155 lb 15.985 oz Intake: IV 1210 / 1210 1200 / 1200 Oral 750 / 750 Other: Urine Appearance Clear Comment pt voiding in toilet, measuring hat has been removed prior to void. Stool Size Moderate Stool Characteristics Soft Liquid Voiding Methods Toilet Toilet Laboratory Results WBC 11.20 k/cumm (4.4-10.8) H 10/03/19 11:15 RBC 3.80 m/cumm (4.00-5.20) L 10/03/19 11:15 Hgb 11.7 g/dL (12.0-15.5) L 10/03/19 11:15 Hct 34.7 % (36.0-46.0) L 10/03/19 11:15 MCV 91.3 fL (80-95) 10/03/19 11:15 MCH 30.8 pg (27.0-33.0) 10/03/19 11:15 MCHC 33.7 g/dL (32.0-36.0) 10/03/19 11:15 RDW 15.0 % (11.7-14.6) H 10/03/19 11:15 Plt Count 416 x1000/uL (130-400) H 10/03/19 11:15 MPV 9.4 fL (8.0-11.0) 10/03/19 11:15 Immature Gran % 0.2 % 10/02/19 17:04 Neutrophils % 88.9 10/02/19 17:04 Lymphocytes % 8.5 10/02/19 17:04 Monocytes % 2.3 10/02/19 17:04 Eosinophils % 0.0 10/02/19 17:04 Basophils % 0.1 10/02/19 17:04 Absolute Neutrophils 12.58 k/cumm (1.2-6.7) H 10/02/19 17:04 Absolute Lymphocytes 1.20 k/cumm (1.2-3.4) 10/02/19 17:04 Absolute Monocytes 0.33 k/cumm (0.11-0.7) 10/02/19 17:04 Absolute Eosinophils 0.00 k/cumm (0.0-0.7) 10/02/19 17:04 Absolute Basophils 0.01 k/cumm (0.0-0.2) 10/02/19 17:04 Sodium 140 mmol/L (136-145) 10/02/19 17:04 Potassium 3.1 mmol/L (3.5-5.1) L 10/02/19 17:04 Chloride 105 mmol/L (98-107) 10/02/19 17:04 Carbon Dioxide 22.4 mmol/L (21.0-32.0) 10/02/19 17:04 Anion Gap 12.6 mmol/L (3-11) H 10/02/19 17:04 BUN 11 mg/dL (7-18) 10/02/19 17:04 Creatinine 0.75 mg/dL (0.55-1.02) 10/02/19 17:04 Estimated GFR/1.73 m2 >= 60.00 (mL/min/1.73m2) 10/02/19 17:04 Glucose 155 mg/dL (74-106) H 10/02/19 17:04 Calcium 7.9 mg/dL (8.5-10.1) L 10/02/19 17:04 Total Bilirubin 0.8 mg/dL (0.2-1.0) 10/02/19 17:04 AST 12 U/L (15-37) L 10/02/19 17:04 ALT 16 U/L (14-59) 10/02/19 17:04 Alkaline Phosphatase 65 U/L (46-116) 10/02/19 17:04 Total Protein 7.3 g/dL (6.4-8.2) 10/02/19 17:04 Albumin 3.5 g/dL (3.4-5.0) 10/02/19 17:04
--- NOTE | 2019-10-03 14:38 | CHAPLAIN ---
Tammy was visiting with her when I stopped in. She said she expects to be discharged later today. I introduced myself, explained my role and offered support.
== END 2019-10-03 15:05 | disposition home or self-care (01) ==
LOC: ER 17:35 → MS 19:14
PROVIDERS: Admitting Provider Obstetrics & Gynecology; Emergency Provider Student in an Organized Health Care Education/Training Program; PCP Family Medicine; Visit Provider Obstetrics & Gynecology
DX: N70.03 Acute salpingitis and oophoritis (principal); N85.7 Hematometra; T88.6XXA Anaphylactic reaction due to adverse effect of correct drug or medicament properly administered, initial encounter; T50.8X5A Adverse effect of diagnostic agents, initial encounter
CPT/HCPCS: 36415; 80053; 85027; 96361; 96372; 96374; 96375; 99223; 99233; 99285; 76830; 76856; 85025; 99284; G0378; J0171; J1200; J1885; J2930

== ENCOUNTER 2019-10-25 04:18 | Outpatient (CLI) | payer BC, SELFPAY ==
--- NOTE | 2019-10-25 12:15 | DI.US_ITS ---
EXAM: US PELVIS AND TRANSVAGINAL CLINICAL HISTORY: HEMATOMETRA, N85.7 TECHNIQUE: Ultrasound performed using standard protocol. Transabdominal and transvaginal exams wer e performed. COMPARISON: CT ABDOMEN PELVIS W from 10/02/2019 US PELVIS TRANSVAGINAL from 10/02/2019 FINDINGS: The uterus measures 10.3 x 4.5 x 6.3 cm. A Caesarean section scar is seen. Two small anterior fibroid s are noted, measuring 11 and 8 millimeters in size. The overall myometrium appears heterogeneous. Th e endometrium measures 7 millimeters in thickness and appears heterogeneous. The appearance is improv ed when compared with the previous exam, which showed hematometra. A 2 centimeter cyst is seen on the right ovary. The left ovary is normal in size. No free fluid or hydronephrosis is seen. IMPRESSION: Heterogeneous myometrium with a few small fibroids. Mildly thickened heterogeneous endometrium. The previously noted hematometra is no longer seen. DATA REPOSITORY:
== END 2019-10-25 04:38 ==
PROVIDERS: PCP Family Medicine; Visit Provider Obstetrics & Gynecology
DX: N85.7 Hematometra (principal); D25.9 Leiomyoma of uterus, unspecified; R93.89 Abnormal findings on diagnostic imaging of other specified body structures
CPT/HCPCS: 76830; 76856

== ENCOUNTER 2019-10-29 07:09 | Outpatient (CLI) | payer BC, SELFPAY ==
[2019-10-29 07:36] LABS: Abs Immature Grans 0.02 k/cumm (0.0-0.09); Absolute Basophil Count 0.01 k/cumm (0.0-0.2); Absolute Eosinophil Count 0.08 k/cumm (0.0-0.7); Absolute Lymphocyte Count 1.78 k/cumm (1.2-3.4); Absolute Monocyte Count 0.35 k/cumm (0.11-0.7); Absolute Neutrophil Count 2.63 k/cumm (1.2-6.7); Basophils % 0.2; Eosinophils % 1.6; HCT 41.7 % (36.0-46.0); HGB 14.1 g/dL (12.0-15.5); Immature Grans % 0.4 %; Lymphocytes % 36.6; Mean Corp. HGB Concentration 33.8 g/dL (32.0-36.0); Mean Corpuscular Hemoglobin 30.5 pg (27.0-33.0); Mean Corpuscular Volume 90.1 fL (80-95); Mean Platelet Volume 8.9 fL (8.0-11.0); Monocytes % 7.2; Platelet Count 432 x1000/uL (130-400); RBC 4.63 m/cumm (4.00-5.20); RBC Distribution Width 14.5 % (11.7-14.6); White Blood Cell Count 4.87 k/cumm (4.4-10.8)
[2019-10-29 07:54] LABS: Hemoglobin A1C 5.4 % (3.8-5.6)
[2019-10-29 08:48] LABS: ALT 23 U/L (14-59); AST 19 U/L (15-37); Albumin 3.9 g/dL (3.4-5.0); Alkaline Phosphatase 67 U/L (46-116); Anion Gap 9.8 mmol/L (3-11); BUN 22 mg/dL (7-18); Bilirubin, Total 0.5 mg/dL (0.2-1.0); C-Reactive Protein 0.08 mg/dL (0.0-0.3); CO2 25.2 mmol/L (21.0-32.0); CREATININE 0.95 mg/dL (0.55-1.02); Calcium 8.3 mg/dL (8.5-10.1); Chloride 106 mmol/L (98-107); Glucose 96 mg/dL (74-106); Potassium 4.9 mmol/L (3.5-5.1); Sodium 141 mmol/L (136-145); Total Protein 7.5 g/dL (6.4-8.2)
[2019-10-29 10:24] LABS: HCG Qual (Serum) Negative
== END 2019-10-29 07:29 ==
PROVIDERS: PCP Family Medicine; Visit Provider Family Medicine
DX: R10.32 Left lower quadrant pain (principal); R50.9 Fever, unspecified; R73.9 Hyperglycemia, unspecified
CPT/HCPCS: 36415; 80053; 83036; 84703; 85025; 86140

== ENCOUNTER 2020-02-17 21:00 | Outpatient (REF) | payer BC, SELFPAY ==
[2020-02-17 19:02] LABS: HCT 36.8 % (36.0-46.0); HGB 12.2 g/dL (12.0-15.5); Mean Corp. HGB Concentration 33.2 g/dL (32.0-36.0); Mean Corpuscular Hemoglobin 30.8 pg (27.0-33.0); Mean Corpuscular Volume 92.9 fL (80-95); Mean Platelet Volume 10.3 fL (8.0-11.0); Platelet Count 388 x1000/uL (130-400); RBC 3.96 m/cumm (4.00-5.20); RBC Distribution Width 13.3 % (11.7-14.6); White Blood Cell Count 4.53 k/cumm (4.4-10.8)
[2020-02-17 19:37] LABS: Ferritin 89 ng/mL (8-252); Vitamin B12 467 pg/mL (193-986)
[2020-02-17 19:38] LABS: Folate > 20.0 ng/mL (8.6-20.0)
[2020-02-17 19:45] LABS: C-Reactive Protein 0.28 mg/dL (0.0-0.3)
== END 2020-02-17 21:20 ==
LOC: NCHCN 21:00
PROVIDERS: PCP Family Medicine; Visit Provider Family Medicine
DX: R20.9 Unspecified disturbances of skin sensation (principal)
CPT/HCPCS: 82306; 85027; 82607; 82728; 82746; 86140

== ENCOUNTER 2020-03-27 07:25 | Outpatient (CLI) | payer BC, SELFPAY ==
[2020-03-29 00:17] LABS: COVID-19 RT-PCR Result NEGATIVE (Negative)
== END 2020-03-27 07:45 ==
PROVIDERS: PCP Family Medicine; Visit Provider Surgery
DX: Z01.818 Encounter for other preprocedural examination (principal)
CPT/HCPCS: U0003

== ENCOUNTER 2020-03-31 06:10 | Day surgery (SDC) | payer BC, SELFPAY ==
[2020-03-31 06:35] VITALS: BP 125/89; PULSE 89; RESP 18; TEMP 36.3; O2SAT 99
[2020-03-31] MEDS: Lactated Ringers 1,000 ML 80 ML IV (07:00)
[2020-03-31] MEDS: Lidocaine 1% Multi-Dose 50 ML VIAL (07:44)
--- NOTE | 2020-03-31 07:45 | SOFT_PTH ---
PATIENT: Tammy Ruth LOC: [facility] U#:[id number] AGE/SX: 49/F ROOM: RE03/31/[address]: Mecca Lawrence MD : 1970 BED: DIS: 03/31/2020 SPEC #: [id number] RECD: 03/31/20 12:47 STATUS: MATT REQ #: [id number] AMI: 03/31/20 07:[address]: Mecca Lawrence DEPT: Surgical Specimen RECD BY: Anna Calderon ENTERED: 03/31/20 12:49 SP TYPE: SOFT OTHR DR: Rocio Lange Tissues: 1 - SOFT TISSUE MISC (INC. LIPOMA) 2 - BIOPSY BOWEL Procedures: GROSS AND MICRO LEVEL 4 GROSS AND MICRO LEVEL 3 Comments: [id number]
--- NOTE | 2020-03-31 08:36 | W.PM.DSUDISC ---
Discharge Plan Disposition Patient Disposition: HOME Condition: Good Discharge Details Reason For Visit: Excision left low back lipoma, colonoscopy Attending Provider: Mecca Lawrence Primary Care Provider: Rocio Lange Home Meds and New Rx's Prescriptions: Continued dextroamphetamine-amphetamine 10 mg capsule,extended release 24hr 15 mg PO QAM RF: 0 lorazepam 0.5 MG tablet 0.5 mg PO HS RF: 0 montelukast [Singulair] 10 MG tablet 10 mg PO DAILY RF: 0 meloxicam 7.5 MG tablet 15 mg PO DAILY RF: 0 ropinirole 2 mg tablet 2 mg PO QHS RF: 0 budesonide-formoterol [Symbicort] 160-4.5 mcg/actuation HFA aerosol inhaler 2 puff IH BID RF: 0 venlafaxine [Effexor XR] 75 mg Capsule,Extended Release 24hr 75 mg PO DAILY RF: 0 mirtazapine 15 mg Tablet 15 mg PO QHS RF: 0 albuterol sulfate [ProAir HFA] 90 mcg/actuation Hfa Aerosol Inhaler 2 puff INHALATION QID PRNRF: 0 acetaminophen [Tylenol Extra Strength] 500 mg Tablet 500 mg PO QID PRNRF: 0 Discontinued bisacodyl [Dulcolax (bisacodyl)] 5 mg tablet,delayed release (DR/EC) 5 mg PO ONCE Qty: 4 RF: 0 polyethylene glycol 3350 17 gram/dose powder 17 g PO ONCE Qty: 238 RF: 0 Discharge Instructions Additional Instructions: Findings: Your colon looked normal. Follow up: Plan for routine screening colonoscopy in 10 years or sooner if symptoms arise. Please call if you develop: fevers >101.5 Nausea or Vomiting Abdominal pain that is not transient DAY SURGERY UNIT POST COLONOSCOPY INSTRUCTIONS 1. Because there will be medication in your system for the next 24 hours, you may feel a little sleepy. Your coordination will be affected. Therefore: a. Do not drive or operate dangerous equipment for 24 hours. b. Do not drink alcohol beverages for 24 hours (not even beer). c. Plan to go home and rest for the day. 2. Generally there are no restrictions on your activity after a day or so has gone by, but you may feel a bit fatigued for a few days. 3 After you arrive home you may have a light meal and return to a normal diet as you can tolerate it without feeling sick to your stomach. 4. After surgery, you may feel pain or discomfort. This should be only transient, but if it persists please contact your doctor. 5. If there are any questions regarding the findings of your procedure, please feel free to contact your doctor. 6. If you are unable to contact your doctor with a problem, contact the hospital at [phone]. 7. Continue all your regular medications unless directed otherwise. INCISION INSTRUCTIONS The top bandage can be removed tomorrow. The steri strips will usually stick for about a week. When the edges start to curl up, they can be removed. It is okay to shower tomorrow, the water can run over the steri strips Do not swim or soak in a tub for two weeks Call for any concerns including fever, increased pain, incision redness or drainage. Keep activity light for a few days. Walking and stairs are fine. May use Tylenol alternating with ibuprofen for pain control. Ice is also an option. The maximum dose for Tylenol is 4000 mg/day. May use ibuprofen 800 mg every 8 hours as needed. I understand the above instructions and have no questions. Signature of Patient or Responsible Adult Escort Date/Time Name of Responsible Adult Escort Signature of Nurse Date/Time Activity:: Light for two -three days Remove Dressings/Wound Care:: 24 hours Shower/Bathe:: 24 hours Diet:: As Tolerated Discharge Orders Discharge Orders: Discharge Order (Routine); Ordered 03/31/20 Ordered By: Mecca Lawrence DS: Diagnosis Discharge Diagnosis (1) Lipoma of back: Status: Acute (2) Normal colonoscopy: Status: Acute
[2020-03-31 09:07] VITALS: BP 126/80; PULSE 66; RESP 16; TEMP 35.8; O2SAT 96
--- NOTE | 2020-03-31 12:02 | W.PM.OP ---
Date of service: 03/31/20 Operative Note Operative Note DATE OF PROCEDURE: 03/31/20 PRE-OP DIAGNOSIS: Left lower back lipoma. Colon cancer screening POST-OP DIAGNOSIS: other (Left lower back lipoma. Normal colon, prominent ileocecal valve.) PROCEDURE: Excision deep subcutaneous mass left lower back Colonoscopy with biopsy SURGEON: Mecca Lawrence ANESTHESIA: MAC and local Patient was transported to: same day Indications: This patient presents for her first screening colonoscopy. She has no symptoms or FH colon cancer. She also complains of a tender lump on her left lower back. Procedure Description: The patient was placed in the left Chance position. Propofol was titrated to sedation. The skin of her left lower back was prepped and draped sterilely. A transverse incision was made and subcutanous tissue divided with cautery. The lipoma was dissected free of the deep SQ tissue with gentle blunt and cautery dissection. Hemostasis was achieved with cautery. The mass measured 6cm. The skin was closed with a 4-0 monocril suture and dressed. Digital rectal examination revealed no abnormalities. The scope was advanced to the cecum without difficulty. The ileocecal valve and appendiceal orifice were clearly identified. The distal ileum was intubated and appeared normal. The valve was slightly prominent/irregular so biopsies were performed. The prep was good. The scope was slowly withdrawn over the course of greater than 6 minutes with no abnormalities seen in the ascending, transverse, descending, sigmoid colon or rectum including on retroflexed view. The patient tolerated the procedure well and was stable to recovery. Plan for routine screening colonoscopy in 10 years or sooner if symptoms indicate.
== END 2020-03-31 09:30 | disposition home or self-care (01) ==
PROVIDERS: PCP Family Medicine; Visit Provider Surgery
PROC: (CPT 11406; principal; 2020-03-31 07:30)
PROC: 0DJD8ZZ Inspection of Lower Intestinal Tract, Via Natural or Artificial Opening Endoscopic (ICD-10-PCS; CPT 45378; 2020-03-31 07:30)
DX: Z12.11 Encounter for screening for malignant neoplasm of colon (principal); D17.1 Benign lipomatous neoplasm of skin and subcutaneous tissue of trunk
CPT/HCPCS: 11406; 45380; 81025; 88305; 88304; J1885; J2001; J2405

== ENCOUNTER 2020-10-24 20:23 | Emergency (ER) | payer BC, SELFPAY ==
[2020-10-24 20:23] VITALS: BP 127/71; PULSE 102; RESP 16; TEMP 36.3; O2SAT 97
--- NOTE | 2020-10-24 20:30 | RT.EKG_ITS ---
APPROVED REPORT Exam: Resting ECG Patient Location: E HR:78 bpm ECG Measurements Heart Rate 78 AXIS OK 204 P 64 QRSd 95 QRS 38 QT 383 T 34 QTc 435 Conclusion Sinus rhythm...normal P axis, V-rate 60- 99 Borderline prolonged OK interval...OK >202, V-rate 50- 90 Probable left atrial enlargement...P >50mS, <-0.10mV V1 Nonspecific T abnrm, anterolateral leads...T <-0.10mV, I aVL V2-V6 I have reviewed and interpreted ECG and agree with software generated interpretation.
--- NOTE | 2020-10-24 20:32 | ED.GENADUL_ITS ---
Discharge Plan Disposition Patient Disposition: HOME Condition: Improving Discharge Details Clinical Impression: Nausea & vomiting, Use of cannabinoid edibles Primary Care Provider: Rocio Lange ED Provider: January Tracey Home Meds and New Rx's Prescriptions: Continued montelukast [Singulair] 10 MG tablet 10 mg PO DAILY RF: 0 venlafaxine [Effexor XR] 75 mg Capsule,Extended Release 24hr 75 mg PO DAILY RF: 0 mirtazapine 15 mg Tablet 15 mg PO QHS RF: 0 albuterol sulfate [ProAir HFA] 90 mcg/actuation Hfa Aerosol Inhaler 2 puff INHALATION QID PRNRF: 0 acetaminophen [Tylenol Extra Strength] 500 mg Tablet 500 mg PO QID PRNRF: 0 No Action dextroamphetamine-amphetamine 10 mg capsule,extended release 24hr 15 mg PO QAM RF: 0 lorazepam 0.5 MG tablet 0.5 mg PO HS RF: 0 meloxicam 7.5 MG tablet 15 mg PO DAILY RF: 0 ropinirole 2 mg tablet 2 mg PO QHS RF: 0 Discharge Instructions Instructions: Acute Nausea and Vomiting (ED), Medicinal Use of Cannabis (ED) Additional Instructions: At this time your labs are all within normal limits, please be careful with mixing medications and any other substances or edibles as this may cause adverse effects such as nausea or vomiting. Take the Zofran as needed up to 3 times a day for nausea and vomiting. Advance diet as tolerated, Follow up with primary care provider in 3-5 days. Return to ED sooner if any worsening or concerns. Increase oral fluids. Referrals: Rocio Lange MD [Primary Care Provider] - Medical Decision Making 50-year-old female patient presents to the ER via EMS with chief complaint of nausea vomiting after taking a 25 mg CBD edible at approximately 7 PM, had a sip of wine, and took her Requip (ropinirole) which is previously one of her normal medications. She states that she has some mild midepigastric burning from the vomiting. Upon arrival she is diaphoretic, pale and dry heaving. EMS gave her one 4 mg ondansetron ODT prior to arrival. She has a past medical history of carpal tunnel, , restless legs, anxiety, asthma. Work-up ordered including CBC, CMP, lipase, urinalysis and urine drug screen, EKG. EKG was reviewed by Dr. Dillon Irizarry, DO ER attending, please see his official report, no old EKG available for review. No ST elevation, prolonged IN interval. Labs are largely within normal limits, no leukocytosis lipase is within normal limits, glucose is 177, anion gap is 12.8, BUN 22, creatinine 1.0, GFR 68. Urinalysis shows small blood 5-10 RBCs, positive for amphetamines and THC. Patient does take an amphetamine (Adderall). 2156: Patient ambulatory up to BR without assistance feeling better after IV fluids and antiemetics. Discussed findings with patient, she verbalizes understanding. Discussed home care and strict return instructions. I did discuss cautions of mixing multiple medications with alcohol and cannabinoid products she verbalizes understanding. Patient's vital signs are improved and she is no longer tachycardic. This text was generated using StyleChat by [employer] system, please disregard any oddities of phrase or misspellings. HPI General Mode of arrival: EMS . Date/Time Provider Initiated Documentation: 10/24/20 20:28 . Limitations to Documentation: no limitations . Information obtained by: patient and EMS . HPI Narrative: 50-year-old female patient presents to the ER via EMS with chief complaint of nausea vomiting after taking a 25 mg CBD edible at approximately 7 PM, had a sip of wine, and took her Requip (ropinirole) which is previously one of her normal medications. She states that she has some mild midepigastric burning from the vomiting. Upon arrival she is diaphoretic, pale and dry heaving. EMS gave her one 4 mg ondansetron ODT prior to arrival. She has a past medical history of carpal tunnel, , restless legs, anxiety, asthma. Related Data Home Medications Medication Instructions Recorded Confirmed lorazepam 0.5 mg PO HS 07/25/16 10/24/20 montelukast [Singulair] 10 mg PO DAILY tab-cap 07/25/16 10/24/20 meloxicam 15 mg PO DAILY tab-cap 03/27/18 10/24/20 dextroamphetamine-amphetamine ER 15 mg PO QAM 11/13/18 10/24/20 10 mg 24hr capsule,extend release albuterol sulfate [ProAir HFA] 2 puff INHALATION QID PRN 10/02/19 10/24/20 mirtazapine 15 mg PO QHS 10/02/19 10/24/20 venlafaxine [Effexor XR] 75 mg PO DAILY 10/02/19 10/24/20 ropinirole 2 mg tablet 2 mg PO QHS 11/07/19 10/24/20 acetaminophen [Tylenol Extra 500 mg PO QID PRN 03/31/20 10/24/20 Strength] Allergies Allergy/AdvReac Type Severity Reaction Status Date / Time Iodinated Contrast Media Allergy Severe Verified 04/23/20 14:04 iohexol [From Omnipaque] Allergy Severe Anaphylaxsi Verified 04/23/20 14:04 s trazodone AdvReac Mild very dry Verified 04/23/20 14:04 mouth General Stated Complaint: Nausea/Vomit/Diar FRANCK: 3 Review of Systems Narrative: Constitutional: Negative for weight loss, alert and oriented, well groomed, normal body habitus, appears uncomfortable and sleepy. HEENT: Denies trauma, headaches, blurry vision, nasal discharge, sore throat, trouble swallowing. Chest: Denies chest pain, palpitations, irregular rhythm, hypertension. Respiratory: Denies Shortness of breath, cough, hemoptysis. GI: Denies diarrhea, constipation. Reporting mid epigastric pain, nausea vomiting. : Denies dysuria, hematuria, flank pain, rectal bleeding. Neuro: Denies blurry vision, weakness, syncope, headache or facial numbness. Positive dizziness. Hematologic: Denies easy bruising, intolerance to heat or cold, hair loss. [facility] Medical History Abnormal uterine bleeding (AUB) heavy flow. Rx 2018 Mirena which fell out. 04/2018 Tranexamic acid during menses. 10/2018 Aygestin BID. 11/2017 U/S nl uterus? Adenomyosis. EMBx weekly prolif endometrium. 12/13/18 OCPs. 12/2018 BP elevated. Ablation discussed Bleeding has increased off OCP changing pad/tampon q hour hg 9.4 pale she has failed multiple medication treatments Plan ablation 01/16 all questions asked and answered consents signed plan endometrial ablation r/b/a reviewed consent signed ADD (attention deficit disorder) Adjustment disorder with mixed anxiety and depressed mood Anxiety Asthma Back pain Complicated grief Eczema Hx of osteoarthritis Hyperglycemia Insomnia Left carpal tunnel syndrome Lipoma of back left lower back per referral penitentiary (current) use of non-steroidal anti-inflammatories (nsaid) Major depression Osteoarthritis Paresthesia PTSD (post-traumatic stress disorder) Restless leg Surgical History Biopsy of breast Fibroadenoma section History of endometrial ablation Hx of arthroscopy of left knee Family History Mother No problems noted. Father No problems noted. Social History Smoking/Tobacco Use Status: Never Smoking risk assessment performed?: Yes Alcohol Intake: current Alcohol Intake frequency: a few times a month Alcohol type: wine Drug use: Never Substance use type: does not use Details: alcohol: t-7 Household members: spouse, children and other Details: Meena - Marjorie. 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 Appears stated age. Normal body habitus. Appears sleepy, is diaphoretic upon arrival. Head: Normocephalic, no trauma. Eyes: Pupils PERRLA, Red reflex noted, EOM's intact. Eyelids symmetrical without lesions, discharge, or swelling. ENT: Bilateral TM's WNL, External ear normal to inspection, no mastoid TTP, swelling, or erythema, Nasal turbinates WNL, no nasal discharge. Normal dentition, Posterior pharynx WNL, no exudate. Chest: Sinus tachycardia, Normal S1, S2, distal pulses intact. Resp: Lungs clear to auscultation bilaterally, no wheezes, rales, or rhonchi. Abdomen: Soft, nondistended nontender to palpation all 4 quadrants. Skin: No suspicious rashes or lesions. Capillary refill less than 2 sec. pale. Neurologic: Cranial nerves II-XII intact. Alert and oriented x 3. DTR's intact. Hematologic/Lymphatic: No ecchymosis, no lymphadenopathy. Course Vital Signs Vital signs: Vital Signs Temperature 36.3 C L 10/24/20 20:23 Pulse 102 H 10/24/20 20:23 Respiratory Rate 16 10/24/20 20:23 Pulse Oximetry 97 10/24/20 20:23 Temperature 36.3 C L 10/24/20 20:23 Temperature Source Skin 10/24/20 20:23 Pulse 102 H 10/24/20 20:23 Respiratory Rate 16 10/24/20 20:23 Pulse Oximetry 97 10/24/20 20:23 Oxygen Delivery Method Room Air 10/24/20 20:23 Oxygen Flow Rate 0 10/24/20 20:23
--- NOTE | 2020-10-24 20:32 | NUR.NOTE ---
Nursing Note: This RN speaks with pt's whom is in lobby. Marjorie, . Reports She was fine all day and all off sudden she said she didnt' feel well at 730pm. She has never taken the edibles before and had one with wine about 7pm. Reports emesis. Pt poor historian of pt's meds/allergies/hx. States, she has asthma, and she takes something for her restless legs but I don't know what it is.
[2020-10-24] MEDS: Normal Saline 1,000 ML 1000 ML IV (20:40)
[2020-10-24] MEDS: Ondansetron 4 MG/2 ML VIAL IVP (20:40)
[2020-10-24 20:49] LABS: Abs Immature Grans 0.02 10^3/uL (0.0-0.06); Absolute Basophil Count 0.03 10^3/uL (0.0-0.2); Absolute Lymphocyte Count 2.69 10^3/uL (1.2-3.4); Absolute Monocyte Count 0.43 10^3/uL (0.1-0.8); Absolute Neutrophil Count 6.69 10^3/uL (1.2-6.7); Basophils % 0.3; HCT 39.2 % (36.0-46.0); HGB 13.1 g/dL (11.2-15.7); Immature Grans % 0.2; Lymphocytes % 26.7; MCH 30.9 pg (27.0-33.0); MCHC 33.4 % (32.0-36.0); MCV 92.5 fL (80-95); MPV 9.7 fL (8.0-11.0); Monocytes % 4.3; Neutrophils % 66.5; Nucleated RBC 0 %; Platelet Count 363 10^3/uL (130-400); RBC 4.24 10^6/uL (3.93-5.22); RDW 12.6 % (11.7-14.6); RDW-SD 43.2 fL; WBC 10.06 10^3/uL (4.4-10.8)
[2020-10-24 21:00] LABS: Lipase 125 U/L (73-393)
[2020-10-24 21:05] LABS: ALT 23 U/L (14-59); AST 32 U/L (15-37); Alkaline Phosphatase 85 U/L (46-116); Anion Gap 12.8 mmol/L (3-11); BUN 22 mg/dL (7-18); Bilirubin, Total 0.5 mg/dL (0.2-1.0); CO2 23.2 mmol/L (21.0-32.0); Calcium 9.2 mg/dL (8.5-10.1); Chloride 101 mmol/L (98-107); Estimated GFR 58.45 (mL/min/1.73m2); Glucose 177 mg/dL (74-106); Potassium 3.9 mmol/L (3.5-5.1); Sodium 137 mmol/L (136-145)
--- NOTE | 2020-10-24 21:57 | NUR.NOTE ---
No further N/V. Ambulated to BR with steady gait. UA obtained. IVF infusing a/o.
[2020-10-24 22:02] LABS: Bilirubin Negative (Negative); Blood Small (Negative); Clarity Clear (Clear); Glucose Negative (Negative); Ketones 40 mg/dL (Negative); Leukocyte Esterase Negative (Negative); Nitrite Negative (Negative); Specific Gravity >= 1.030 (1.005-1.025); Urobilinogen 0.2 EU/dL (Up TO 0.2)
[2020-10-24 22:13] LABS: *AMPHETAMINES SCREEN URINE POSITIVE (Negative); *BARBITURATES SCREEN URINE Negative (Negative); *BENZODIAZEPINES SCREEN URINE Negative (Negative); Cannabinoids THC POSITIVE (Negative); Cocaine Screen,Urine Negative (Negative); METHADONE URINE SCREEN Negative (Negative); OPIATES URINE SCREEN Negative (Negative); Tricyclic Antidepressants Negative (Negative)
[2020-10-24 22:14] LABS: Bacteria Few HPF (Negative); C & S Indicated? No; Casts Negative LPF (Negative); Crystals Negative HPF (Negative); Epithelial Cells Few HPF (Negative); Mucus Trace (Negative)
[2020-10-24 22:16] VITALS: BP 130/68; PULSE 79; RESP 16; O2SAT 97
[2020-10-24] MEDS: Ondansetron O.D.T. 4 MG TABEF, 3 TABS/BTL PO (22:19)
== END 2020-10-24 22:25 | disposition home or self-care (01) ==
PROVIDERS: Emergency Provider Registered Nurse Emergency; PCP Family Medicine
DX: R11.2 Nausea with vomiting, unspecified (principal); F12.90 Cannabis use, unspecified, uncomplicated; Z79.899 Other long term (current) drug therapy
CPT/HCPCS: 80053; 80307; 83690; 93005; 96361; 96374; 99284; 81003; 81015; 85025; 93010; 99283; J2405

== ENCOUNTER 2020-11-20 15:00 | Outpatient (REF) | payer BC, SELFPAY ==
--- NOTE | 2020-11-20 11:00 | PAPFT_PTH ---
PATIENT: Tammy Ruth LOC: [facility] U#:[id number] AGE/SX: 50/F ROOM: RE11/20/[address]: Rocio Lange : 1970 BED: DIS: 11/20/2020 SPEC #: [id number] RECD: 11/20/20 17:53 STATUS: MATT RERomi #: [id number] AMI: 11/20/20 11:[address]: Rocio Lange DEPT: [facility] Cytology RECD BY: Anna Calderon Tissues: 1 - CX/ENDOCX FOR PAP SMEARS Procedures: PAP THIN PREP/UVM Screening HPV DNA PROBE Comments: [id number]
== END 2020-11-20 15:01 | disposition home or self-care (01) ==
LOC: NCHCN 15:00
PROVIDERS: PCP Family Medicine; Visit Provider Family Medicine
DX: Z00.00 Encounter for general adult medical examination without abnormal findings (principal); Z12.4 Encounter for screening for malignant neoplasm of cervix; Z11.51 Encounter for screening for human papillomavirus (HPV)
CPT/HCPCS: 88142; 87624

== ENCOUNTER 2021-02-26 13:53 | Outpatient (CLI) | payer BC, SELFPAY ==
--- OUTSIDE RECORDS SUMMARY | 2021-02-26 13:55 | XMS_ITS ---
:1970 Author Care Team Providers Name Role Phone TOBIN Ambrose DOROTA Primary Care Provider [phone] [facility] OTHER [phone] Allergies Code Code System Name Reaction Severity Status Onset Iodinated ? ? Active ? Contrast Media Medications Name Status Start Date Stop Date ? ? dextroamphetamine-amphetamine 15 mg tablet Active ? Not available Take 1 tablet every day by oral route. Effexor XR 75 mg capsule,extended release Active ? Not available Take 1 capsule every day by oral route. lorazepam 0.5 mg tablet Active ? Not avai lable Take 1 tablet every 4 hours by oral route as needed. meloxicam 15 mg tablet Active ? Not avail able Take 1 tablet every day by oral route. mirtazapine 15 mg tablet Active ? Not katlyn ilable Take 1 tablet every day by oral route at bedtime. ProAir HFA 90 mcg/actuation aerosol inhaler Active ? Not available Inhale 2 puffs every 4 hours by inhalation route as needed. ropinirole 2 mg tablet Active ? Not avail able Take 1 tablet as needed by oral route at bedtime. Singulair 10 mg tablet Active ? Not avail able Take 1 tablet every day by oral route. Symbicort 160 mcg-4.5 mcg/actuation HFA aerosol inhaler Active ? Not available Inhale 2 puffs twice a day by inhalation route as needed. zolpidem 5 mg tablet Active ? Not availab le take 1-2 PO night of sleep study if needed Problems Name Status Onset Date Source ? Major Depressive Disorder Active 02/09/2021 ? Abnormal Grief Reaction Active 02/09/2021 ? Posttraumatic Stress Disorder Active 02/09/2021 ? Adult Attention Deficit Hyperactivity Active 02/09/2021 ? Disorder Insomnia Active 02/09/2021 ? Restless Legs Active 02/09/2021 ? Asthma Active 02/09/2021 ? Eczema Active 02/09/2021 ? Osteoarthritis Active 02/09/2021 ? Low Back Pain Active 02/09/2021 ? Fatigue Active 02/09/2021 ? 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 Anti-inflammatory Drug Psychophysiologic Insomnia Active 02/11/2021 ? Snoring Active 02/11/2021 ? Procedures None recorded. Results Lab Results None recorded. Past Encounters 02/11/2021 Snoring; Restless Legs; Psychophysiologi c Insomnia; Bilateral Knee Pain Abigail Wiley HAIR DESIGNER: [address] [place] [phone], Ph. Social History Tobacco Smoking Status Never Smoker Vaccine List None recorded. Plan of Care Reminders Provider Appointments None ? ? recorded. Lab None ? ? recorded. Referral None ? ? recorded. Procedures None ? ? recorded. Surgeries None ? ? recorded. Imaging None ? ? recorded. Vitals Height Weight BMI Blood Pressure 162.56 cm 73.94 kg 28 kg/m2 123/82 mm[Hg]
--- OUTSIDE RECORDS SUMMARY | 2021-02-26 13:55 | XMS_ITS | Encounter Summary ---
:1970 Author Care Team Providers Name Role Phone Rocio Lange Primary Care Provider [phone] [facility] Medical Records OTHER [phone] Reason for Visit None recorded. Assessment and Plan 1. Snoring Tammy has symptom of snoring, fatigue, and non-restorative sleep with a [place] score of 2/3 indicating a high likelihood of sleep apnea. She is taking Adderall 15 mg daily and still has persi stent fatigue. I discussed the pathophys iology of obstructive sleep apnea and the potential consequences of untreated ASHISH including how it relates to her symptoms and comorbidities. I ordered a polysomn ogram and discussed what will take place the night of the sleep study. She is given a Rx for Ambien to take if needed the night of the study and is advised that if taken she will need to not drive for a t least eight hours after taking or long er if for any residual drowsiness. Also will need to use caution when getting up at night after taking Ambien. I will see her back to review the results as soon as they are available. I provided greater than 40 minutes in e care of this patient, more than half the time was spent in [id number] counseling. ? sleep study, baseline diag nostic polysomnogram ? zolpidem 5 mg tablet 2. Restless legs She is taking ropinirole 2 mg and as long as she takes this 2-3 hours before bedtime it works well to control her symptoms. If she forgets or takes it later then she will experience symptoms. She had a CMP 10/18/20 with normal kidney and liver functions. No ferritin checked. Wi ll check a ferritin level today and recommend iron supplementation with vitamin C if t his is less than 75 as low ferritin may cause RLS. She is instructed that caffeine and chocolate may worsen RLS symptoms and they may be improved by exercise. Also that c ertain medications may worsen symptoms. She is taking mirtazapine and Effexor both w hich may contribute to her RLS. She has twitching in sleep noted by her and may have PLMS contributing to her fatigue. Will get PSG for further evalua tion. 3. Psychophysiologic insomnia She reports it takes 1-2 hours to fall asleep each night and then she has sleep fragmentation. She often is readin g, watching TV or doing work while trying to sleep. She has a pretty erratic sleep sc hedule often getting to bed as late as 12-2:30 am. She says she does not get sl eepy until 2-3 hours after she takes ropinirole and she takes this at all dif ferent times because she does not keep a routine schedule and is bad about this . She takes mirtazapine 15 mg QHS. I discussed sleep hygeine with her and the importance of keeping a very routine sleep onset/offset. I instructed her not to hayes ve caffeine after 1-2 pm. Will get PSG for further evaluation of possible PLMS and ASHISH. 4. Bilateral knee pain ? ferritin, serum or plasma Discussion Note: None recorded.Patient educational handouts: No information available. Plan of Care Reminders Provider Appointments Procedure 60 Sl eep Crude Area 02/27/2021 7:00PM ? Office 30 Abelino Wiley NP 05/26/2021 3:00PM Lab Ferritin, [facility] Serum or Plasma 02/11/2021 Referral None ? ? recorded. Procedures None ? ? recorded. Surgeries None ? ? recorded. Imaging None ? ? recorded. Medications Name Start Date ? ? dextroamphetamine-amphetamine 15 mg tablet ? Take 1 tablet every day by oral route. Effexor XR 75 mg capsule,extended release ? Take 1 capsule every day by oral route. lorazepam 0.5 mg tablet ? Take 1 tablet every 4 hours by oral route as needed. meloxicam 15 mg tablet ? Take 1 tablet every day by oral route. mirtazapine 15 mg tablet ? Take 1 tablet every day by oral route at bedtime. ProAir HFA 90 mcg/actuation aerosol inhaler ? Inhale 2 puffs every 4 hours by inhalation route as n eeded. ropinirole 2 mg tablet ? Take 1 tablet as needed by oral route at bedtime. Singulair 10 mg tablet ? Take 1 tablet every day by oral route. Symbicort 160 mcg-4.5 mcg/actuation HFA aerosol inhale r ? Inhale 2 puffs twice a day by inhalation route as nee ded. zolpidem 5 mg tablet ? take 1-2 PO night of sleep study if needed Medications Administered None recorded. Vitals Height Weight BMI Blood Pressure 5 ft 4 in 163 lbs 28 kg/m2 123/82 mm[Hg] Results Lab Results None recorded. Allergies Code Code System Name Reaction Severity Onset Iodinated ? ? ? Contrast Media Problems Name Status Onset Date Source ? [...] Active 02/09/2021 ? Fatigue Active 02/09/2021 ? Group Home Current Use of Non-steroidal Active ? Anti-inflammatory Drug Psychophysiologic Insomnia Active 02/11/2021 ? Snoring Active 02/11/2021 ? Procedures None recorded. Vaccine List None recorded. Social History Tobacco Smoking Status Never Smoker Are you currently employed? Y Blind or serious difficulty seeing Y Not es: reading glasses Alcohol intake Occasional Notes: 1-2 a week Live alone or with others? with others Hard of hearing or deaf in one or N both ears? Caffeine intake Occasional Notes: 3-4 c coff ee in the am till 3pm Drug Use N Functional Status Blind or serious Yes difficulty seeing? 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 History of Present Illness Note: <p>Tammy Ruth is seen in consultation at the request of Rocio Lange MD for evaluation of restless legs, snoring and fatigue.</p><p>
</p><p>Tammy has amedical history to include asthma, ADHD (on Adderall), eczema, depression, OA knees, PTSD, insomnia and RLS.</p><p>{{Admira# Patient}} feels {{his her*}} biggest problem with sleep is {{falling and staying asleep# snoring waking up a lot not feeling rested}}. She says she has had trouble sleeping for 5-6 years and this got worse when she became more depressed after loing her mother and going through a divorce.{{He She*}} typically goes to bed at {{10- 11# 9}}pm. It takes {{1-2# 5}} hours to fall asleep. {{He She*}} wakes up {{4- 5# 1 2 3}} times a night from {{discomfort# unknown reason pain bathroom}} and it takes {{2-10# }} minutes to get back to sleep. {{He She *}} gets up at {{4:30-5# 5 6 7 8}}am to start {{his her*}} day. {{He She*}} does not take naps. {{He She*}} has no disturbances to {{his her*}} sleep. {{He She*}} has never had a sleep study. {{He She*}} sleeps {{alone with someone*}} in a bed.

SLEEP QUALITY: Feels quality of sleep most nights is {{good okay poor*}}.

DAYTIME ALERTNESS: Reports level of alertness most days to be {{alert low energy * sleepy very sleepy}}.

PSYCH SYMPTOMS: {{Has* Has not}} noted worsening memory {{and * or}} concentration. {{Does have Denies current problems with *}} irritability, depression, {{and or*}} anxiety. {{Has Has not*}} noted difficulty with calculations.

INSOMNIA SYMPTOMS: {{Doeshave * Does not have}} an active mind at night when trying to sleep. {{Does have Does not have*}}stressful thoughts interfering with sleep. {{Does * Does not}} watch the clock throughout the night. {{Does * Does not}} worry about getting a good night's sleep.

BREATHING SYMPTOMS: {{Does have * Does not have}} snoring. {{Does have * Does not have}} witnessed apnea. {{Does have Does not have*}} nocturnal choking/gasping/dyspnea.{{Does have Does not have*}} mouth breathing. {{Does have Does not have*}} nasal congestion at night.

MOVEMENT SYMPTOMS: {{Does have * Does not have}} tossing & turning. {{Does have Does not have*}} messysheets in the morning. {{Does have * Does not have}} leg or arm jerks, kicks or twitches in sleep or prior to falling asleep. {{Does * Does not}} have an aching, restless or crawling feeling in legs at night. {{Does Does not*}} have a hard time keeping legs still when trying to sleep. {{Does Does not*}} have muscle cramps or Danilo horses. {{Does Does not*}} have sleep walking or talking.

DREAM SYMPTOMS: {{Does have Does not have*}} nightmares often that affect ability to sleep. {{Does have Does not have*}} dreams of suffocating/drowning. {{Does Does not*}} dream shortly after falling asleep. {{Does Does not*}} see dreams in the room even when awake.{ {Does Does not*}} see or hear things in the room when falling asleep that aren't really there. {{Does Does not*}} see things in the road when driving that aren't really there. {{Has Has not*}} had someone see then act our their dreams. {{Has Has not*}} accidentally injured themselves while sleeping due to own movements/behaviors.

CATAPLEXY SYMPTOMS: {{Does have Does not have*}} feel limp, lose strength, or fall asleep when very angry, surprised or laughing. {{Does have Does not have*}} leg, arm or face weakness when upset. {{Has Has not*}} had episodes of being unable to move when waking up which is often frightening.

DRIVING: {{Has Has not*}} f is[place] asleep or nearly fallen asleep driving. {{Has had Has not had*}} an accident related to drowsy driving or not paying attention. {{Does Does not*}} forget the last few miles or minutes while driving. {{Has Has not*}} driven out of [place] and crossed center line or gone onto shoulder when driving. {{Has Has not*}} had a passenger tell them they look sleepy when driving.

ESS today 10/21
[place] Questionnaire Score 2/3</p>Review of Systems: ROS as noted in the HPI Review of Systems ? Notes: <p>teeth grinding (no guard) , numbness/tingling to legs.</p> Physical Exam ? Notes: <p>General: A&O, well groome d, answers questions appropriately, {{over weight * obese morbidly obese normal weight thin}}.
HEAD: normocephalic & atraumatic, {{normal appeari ng chin * retrognathia}}.
EYES: non icteric.
NOSE: open nasal passages, septum midline, no polyps or masses.
THROAT/MOUTH: ruth st mucous membranes, modified mallampati score {{1 2 3 4*}}, tonsils with out hypertrophy. Lateral wall narrowing grade {{1 2 3*}}. Tongue scallopin g {{is is not*}} noted.
NECK: supple without palpable lymph nodes.
LUNGS: CTA all monson. Good air movement.
CARDIO: RRR wit hout murmur, gallop or thrill.
ABDOMEN: soft and non tender with positive bowel sounds.
MS: Good ROM of all extremities. No cyanosis, clubbing or kassi ma.
NEURO: A&O. Normal gait.
PSYCH: Normal mood and affect.
CUTANEOU S: no overt lesions or rashes</p>
[2021-02-26 15:26] LABS: Ferritin 89 ng/mL (8-252)
== END 2021-02-26 13:54 | disposition home or self-care (01) ==
PROVIDERS: PCP Family Medicine; Visit Provider Nurse Practitioner
DX: M25.561 Pain in right knee (principal)
CPT/HCPCS: 36415; 82728

== ENCOUNTER 2021-05-28 02:24 | Outpatient (CLI) | payer BC, SELFPAY ==
--- NOTE | 2021-05-28 | DI.MAMMO_ITS ---
Exam(s) MAMMO SCREENING EXAM: MAMMO SCREENING CLINICAL HISTORY: SCREENING, Z12.39 TECHNIQUE: Bilateral full field digital CC and MLO mammographic images were obtained with 3D tomosyn thesis and utilizing computer aided detection (CAD). COMPARISON: Available for comparison. FINDINGS: Masses/Architectural Distortion: There is a partially obscured nodular density in the upper-outer nuha drant of the right breast. Microcalcifications: No suspicious pleomorphic-type are seen. Skin Thickening/Nipple Retraction: None. IMPRESSION: 1. 5 mm partially obscured nodule in the upper outer quadrant of the right breast. 2. This area should be further evaluated with spot compression view and right breast ultrasound. BI-RADS Category 0 - Assessment Incomplete: Need additional imaging evaluation Breast Density - Category B - Scattered areas of fibroglandular density Breast density category C or D implies that the patient has dense breast tissue. Dense breast tissue is very common and is not abnormal but dense breast tissue can make it harder to find cancer on a ma mmogram. Also, dense breast tissue may increase their breast cancer risk. This information about the result of the mammogram report was provided to the patient to raise their awareness. Use this report when you speak with the patient about their risks for breast cancer, which includes their family hist ory. At that time, you may recommend for more screening tests (Ultrasound or MRI) as they might be us eful based on their risk. A negative radiographic report should not delay biopsy if a dominant or clinically suspicious mass is present. Up to ten percent of cancers are not identified on mammography. A negative report may reinforce clinical impression. Adenosis and dense breasts may obscure an underlying neoplasm. False positive reports average 6 to 10%. Patient will receive a letter notifying them of these results.
== END 2021-05-28 02:44 ==
PROVIDERS: PCP Family Medicine; Visit Provider Family Medicine
DX: Z12.31 Encounter for screening mammogram for malignant neoplasm of breast (principal); R92.8 Other abnormal and inconclusive findings on diagnostic imaging of breast; N63.11 Unspecified lump in the right breast, upper outer quadrant
CPT/HCPCS: 77063; 77067

== ENCOUNTER 2021-06-11 00:21 | Outpatient (CLI) | payer BC, SELFPAY ==
--- NOTE | 2021-06-11 | DI.MAMMO_ITS ---
Exam(s) MG MAMMO SCREEN CALL BACK UNI US BREAST RT LIMITED EXAM: MG MAMMO SCREEN CALL BACK UNI CLINICAL HISTORY: F/U MAMMO, PARTIALLY OBSCURED NODULE UOQ RT BREAST. TECHNIQUE: Craniocaudal and mediolateral oblique spot compression Digital Mammography views of the right breast with Computer Aided Diagnosis followed by Tomosynthesis and right breast ultrasound. COMPARISON: 28 May 2021 and exams back to 2012 FINDINGS: Mammography/Tomosynthesis: Masses/Architectural Distortion: Persistent smoothly marginated 5 millimeter nodule upper outer quadr ant. Microcalcifictions: No suspicious pleomorphic-type are seen. Skin Thickening/Nipple Retraction: None. Right breast US: Echotexture: Normal appearance of the glandular tissue. Shadowing: No suspicious foci. Cyst: 5 millimeter cyst 10 o'clock position 3 centimeters from the nipple. Additional 4 millimeter c yst in the 12 o'clock position 4 cm from the nipple. Solid lesions: None seen. Ductal dilation: None. IMPRESSION: 1. Mammographic nodule corresponds to a 5 millimeter cyst. No evidence of malignancy is noted. 2. Unless there is more urgent need, follow-up screening mammography is recommended, as per [place] [employer] guidelines. 3. The findings were discussed with the patient on the date of the examination. BI-RADS Category 2 - Benign Findings Breast Density - Category B - Scattered areas of fibroglandular density A negative radiographic report should not delay biopsy if a dominant or clinically suspicious mass is present. Up to ten percent of cancers are not identified on mammography. A negative report may reinforce clinical impression. Adenosis and dense breasts may obscure an underlying neoplasm. False positive reports average 6 to 10%. Patient will receive a letter notifying them of these results.
== END 2021-06-11 00:41 ==
PROVIDERS: PCP Family Medicine; Visit Provider Family Medicine
DX: Z12.31 Encounter for screening mammogram for malignant neoplasm of breast (principal); R92.8 Other abnormal and inconclusive findings on diagnostic imaging of breast; N60.11 Diffuse cystic mastopathy of right breast
CPT/HCPCS: 76642; 77063; 77067

== ENCOUNTER 2021-10-11 18:30 | Outpatient (REF) | payer BC, SELFPAY ==
[2021-10-11 18:54] LABS: Hemoglobin A1C 5.9 % (<5.7)
[2021-10-13 10:09] LABS: HIV-1/2 Ag & Ab Screen Negative (Negative)
[2021-10-13 12:14] LABS: Hepatitis C Ab w Rflx HCV PCR Negative (Negative)
== END 2021-10-11 18:31 | disposition home or self-care (01) ==
LOC: NCHCN 18:30
PROVIDERS: PCP Family Medicine; Visit Provider Family Medicine
DX: Z00.00 Encounter for general adult medical examination without abnormal findings (principal); Z13.1 Encounter for screening for diabetes mellitus; Z11.4 Encounter for screening for human immunodeficiency virus [HIV]; Z11.59 Encounter for screening for other viral diseases
CPT/HCPCS: 86803; 87389; 83036

== ENCOUNTER → 2022-05-30 02:32 | Outpatient (CLI) | payer BC, SELFPAY ==
--- NOTE | 2022-05-30 14:30 | DI.MAMMO_ITS ---
Exam(s) MAMMO SCREENING EXAM: MAMMO SCREENING CLINICAL HISTORY: screening mammo for breast cancer Z12.39 TECHNIQUE: Mammograms were interpreted according to the usual protocol including computer analysis w [employer] CAD system, tomosynthesis and C-view imaging. COMPARISON: 2012 through 2020 FINDINGS: The breasts are composed of scattered fibroglandular densities, Breast Density category B. No suspicious masses or suspicious microcalcifications are seen. No skin thickening or abnormal axillary lymph nodes are seen. There has been no significant change from prior exams. IMPRESSION: BI-RADS Category 1, Negative mammogram Yearly screening mammography is recommended. Breast Density - Category B, scattered fibroglandular densities. A negative radiographic report should not delay biopsy if a dominant or clinically suspicious mass is present. Up to ten percent of cancers are not identified on mammography. A negative report may reinforce clinical impression. Adenosis and dense breasts may obscure an underlying neoplasm. False positive reports average 6 to 10%. Patient will receive a letter notifying them of these results.
== END ==
PROVIDERS: PCP Family Medicine; Visit Provider Family Medicine
DX: Z12.31 Encounter for screening mammogram for malignant neoplasm of breast (principal)
CPT/HCPCS: 77063; 77067

== ENCOUNTER → 2023-06-01 02:46 | Outpatient (CLI) | payer BC, SELFPAY ==
--- NOTE | 2023-06-01 15:37 | DI.MAMMO_ITS ---
Exam(s) MAMMO SCREENING EXAM: MAMMO SCREENING CLINICAL HISTORY: SCREENING FOR BREAST CANCER Z12.39. TECHNIQUE: Bilateral full field digital CC and MLO mammographic images were obtained with 3D tomosyn thesis and utilizing computer aided detection (CAD). COMPARISON: Prior mammograms were reviewed. FINDINGS: There has been no significant change in the appearance and distribution of the fibroglandular tissue. No CAD designations. There are no new spiculated masses nor malignant appearing microcalcification groups. There is no significant architectural distortion nor skin thickening-retraction. IMPRESSION: No radiographic evidence of malignancy. BI-RADS Category 1 - Negative Breast Density - Category B - Scattered areas of fibroglandular density Breast density Category C or D implies that the patient has dense breast tissue. Dense breast tissue can make it harder to find cancer on a mammogram. Dense breast tissue is also associated with an incr eased risk of breast cancer. This information about the result of the mammogram report was provided to the patient to raise their awareness. Use this report when you speak with the patient about their risks for breast cancer, which includes their family history. At that time, you may recommend additional screening tests (Ultrasoun d or MRI) as these tests may add significant information. A negative radiographic report should not delay biopsy if a dominant or clinically suspicious mass is present. Up to ten percent of cancers are not identified on mammography. A negative report may reinforce clinical impression. Adenosis and dense breasts may obscure an underlying neoplasm. False positive reports average 6 to 10%. Patient will receive a letter notifying them of these results.
== END ==
PROVIDERS: PCP Family Medicine; Visit Provider Family Medicine
DX: Z12.31 Encounter for screening mammogram for malignant neoplasm of breast (principal)
CPT/HCPCS: 77063; 77067

== ENCOUNTER 2024-01-10 12:38 | Outpatient (REF) | payer BC, SELFPAY ==
[2024-01-10 20:49] LABS: HCT 41.7 % (36.0-46.0); HGB 13.7 g/dL (11.2-15.7); MCH 30.3 pg (27.0-33.0); MCHC 32.9 % (32.0-36.0); MCV 92 fL (80-95); MPV 10.2 fL (8.0-11.0); Platelet Count 422 10^3/uL (130-400); RBC 4.52 10^6/uL (3.93-5.22); RDW 13.1 % (11.7-14.6); RDW-SD 44.8 fL; WBC 4.25 10^3/uL (4.4-10.8)
[2024-01-10 21:12] LABS: ALT 27 U/L (14-59); AST 16 U/L (15-37); Alkaline Phosphatase 98 U/L (46-116); Anion Gap 8.6 mmol/L (3-11); BUN 23 mg/dL (7-18); Bilirubin, Total 0.3 mg/dL (0.2-1.0); CO2 26.4 mmol/L (21.0-32.0); Calcium 9.4 mg/dL (8.5-10.1); Chloride 107 mmol/L (98-107); Estimated GFR 66.95 (mL/min/1.73m2); Glucose 108 mg/dL (74-106); Sodium 142 mmol/L (136-145); Total Protein 7.5 g/dL (6.4-8.2)
[2024-01-10 21:14] LABS: Calculated LDL 123 mg/dL (<100); Cholesterol 202 mg/dL (<200); HDL Cholesterol 66 mg/dL (40-60); Triglyceride 66 mg/dL (<150)
[2024-01-10 21:17] LABS: Hemoglobin A1C 5.9 % (<5.7)
== END 2024-01-10 12:39 | disposition home or self-care (01) ==
LOC: NCHCN 12:38
PROVIDERS: PCP Family Medicine; Visit Provider Family Medicine
DX: Z13.6 Encounter for screening for cardiovascular disorders (principal); R73.03 Prediabetes
CPT/HCPCS: 80053; 80061; 85027; 83036

== ENCOUNTER 2025-04-04 17:44 | Outpatient (REF) | payer OTHER, SELFPAY ==
[2025-04-04 15:27] LABS: Anion Gap 9.0 mmol/L (3-11); BUN 19 mg/dL (7-18); CO2 26.0 mmol/L (21.0-32.0); Calcium 9.3 mg/dL (8.5-10.1); Chloride 104 mmol/L (98-107); Estimated GFR 66.53 (mL/min/1.73m2); Glucose 99 mg/dL (74-106); Potassium 4.3 mmol/L (3.5-5.1); Sodium 139 mmol/L (136-145)
== END 2025-04-04 17:45 | disposition home or self-care (01) ==
LOC: NCHCN 17:44
PROVIDERS: PCP Family Medicine; Visit Provider Family Medicine
DX: Z51.81 Encounter for therapeutic drug level monitoring (principal)
CPT/HCPCS: 80048

== ENCOUNTER 2025-04-15 15:01 | Outpatient (CLI) | payer OTHER, SELFPAY ==
--- NOTE | 2025-04-15 | DI.MAMMO_ITS ---
Exam(s) MAMMO SCREENING EXAM: MAMMO SCREENING CLINICAL HISTORY: SCREENING, Z12.31. TECHNIQUE: Bilateral full field digital CC and MLO mammographic images were obtained with 3D tomosynthesis and utilizing computer aided detection (CAD). COMPARISON: Prior mammograms were reviewed. FINDINGS: There has been no significant change in the appearance and distribution of the fibroglandular tissue. There are no new spiculated masses nor malignant appearing microcalcification groups. There is no significant architectural distortion nor skin thickening-retraction. IMPRESSION: No radiographic evidence of malignancy. BI-RADS Category 1 - Negative Breast Density - Category B - There are scattered areas of fibroglandular density. Breast density Category C or D implies that the patient has dense breast tissue. Dense breast tissue can make it harder to find cancer on a mammogram. Dense breast tissue is also associated with an increased risk of breast cancer. This information about the result of the mammogram report was provided to the patient to raise their awareness. Use this report when you speak with the patient about their risks for breast cancer, which includes their family history. At that time, you may recommend additional screening tests (Ultrasound or MRI) as these tests may add significant information. A negative radiographic report should not delay biopsy if a dominant or clinically suspicious mass is present. Up to ten percent of cancers are not identified on mammography. A negative report may reinforce clinical impression. Adenosis and dense breasts may obscure an underlying neoplasm. False positive reports average 6 to 10%. Patient will receive a letter notifying them of these results.
== END 2025-04-15 15:21 ==
PROVIDERS: PCP Family Medicine; Visit Provider Family Medicine
DX: Z12.31 Encounter for screening mammogram for malignant neoplasm of breast (principal); R92.323 Mammographic fibroglandular density, bilateral breasts
CPT/HCPCS: 77063; 77067